=== PATIENT | female | born 1950 | race Caucasian/White ===

== ENCOUNTER 2020-05-27 10:55 | Inpatient (IN) | payer MEDICARE, SELFPAY ==
[2020-05-27] VITALS (23 sets, daily range): BP systolic 104–185; BP diastolic 57–119; PULSE 70–98; RESP 2–24; TEMP 36.1–37; O2SAT 93–100; BMI 16.7; BMI 14.8
--- NOTE | 2020-05-27 | DI.RAD.S_ITS ---
PROCEDURE: XR HIP W PEL IF DONE RT 2V INDICATIONS: IM HIP NAILING RIGHT TECHNIQUE: 3 intraoperative fluoroscopic views of the hip were acquired. COMPARISON: [facility], , XR HIP W PEL IF DONE RT 2V, 05/27/2020, 11:39. FINDINGS: Intraoperative fluoroscopic images of right hip shows internal fixation of previously noted right proximal femoral intertrochanteric fracture with intramedullary lui and fixation screws in place. IMPRESSION: Fluoro guidance was provided intraoperatively for internal fixation of right proximal femur. Dictated by: Mikhail Pagan M.D. on 05/27/2020 at 17:46 Approved by: Mikhail Pagan M.D. on 05/27/2020 at 17:46
--- NOTE | 2020-05-27 10:56 | DI.RAD.S_ITS ---
PROCEDURE: XR HIP W PEL IF DONE RT 2V INDICATIONS: pain after fall TECHNIQUE: AP pelvis with lateral view(s) of the right hip(s). COMPARISON: None. FINDINGS: Bones: Cortical disruption and radiolucency is seen involving intertrochanteric region of right proximal femur suggestive of a minimally displaced intertrochanteric fracture. No other fracture or dislocation. No evidence of avascular necrosis of femoral head. Pelvic ring appears intact. No suspicious bony lesions. Soft tissues: The visualized bowel gas pattern is normal. No suspicious soft tissue calcifications. IMPRESSION: Finding is suggestive of a minimally displaced right intertrochanteric fracture. Dictated by: Mikhail Pagan M.D. on 05/27/2020 at 11:06 Approved by: Mikhail Pagan M.D. on 05/27/2020 at 11:07
--- NOTE | 2020-05-27 11:13 | ED_ITS ---
HPI - General Adult General Chief complaint: Fall Stated complaint: GLF, R Hip Pain Time Seen by Provider: 05/27/20 10:55 Source: patient and EMS Mode of arrival: EMS Limitations: no limitations History of Present Illness HPI narrative: Patient is a 69-year-old female who reports no other medical problems here for evaluation of a fall last evening and right hip pain. Patient states she was in her house painting in her kitchen. She states she came down off of the ladder had walked into her living room when she states that she fell landing on her right side. She thought that she potentially lost consciousness for a very short period of time. She does not think that she hit her head. She is not on blood thinners. Has had pain in her right hip since then. States she could not get up off the floor and laid on the floor all evening. She reports no other injuries from the event. She did receive a total of 100 mcg of fentanyl by EMS prior to arrival. Prior to the fall she denied any prodromal symptoms. Review of Systems Constitutional Constitutional: Denies fever(s) and Denies headache(s) ENT Ears, Nose, Mouth, and Throat: Denies vertigo, Denies dizziness and Denies headache(s) Cardiovascular Cardiovascular: Denies chest pain, Reports syncope, Denies lightheadedness, Denies dyspnea and Denies orthopnea Respiratory Respiratory: Denies cough and Denies dyspnea Gastrointestinal Gastrointestinal: Denies abdominal pain, Denies nausea and Denies vomiting Genitourinary Genitourinary: Denies dysuria Genitourinary: Denies dysuria Musculoskeletal Comments: Right hip pain Integumentary/Breasts Skin/Breast: Denies lesions and Denies rash Neurologic Neurologic: Denies behavioral changes, Denies confusion, Denies vertigo, Denies dizziness, Reports syncope and Denies headache(s) Psychiatric Psychiatric: Denies behavioral changes and Denies confusion Hematologic/Lymphatic Hematologic/Lymphatic: Denies easy bleeding and Denies easy bruising Allergic/Immunologic Allergic/Immunologic: Denies urticaria Patient History Medical History Healthy adult (Acute) Social History lives independently: Yes Smoking Status: Current every day smoker Exam Initial Vital Signs Initial Vital Signs: Vital Signs Temperature 98 F 05/27/20 11:10 Pulse Rate 83 05/27/20 11:10 Respiratory Rate 18 05/27/20 11:10 Blood Pressure 156/70 H 05/27/20 11:10 Pulse Oximetry 97 05/27/20 11:10 Const General: cooperative and comfortable Limitations: mental status not altered HENMT Head: normal to inspection and normocephalic Chest Chest: No crepitus and No tenderness Resp Effort & Inspection: normal respiratory effort Auscultation: clear to auscultation bilaterally Cardio Rate: regular rate Rhythm: regular rhythm Pulses: dorsalis pedis present bilaterally GI Inspection: non-distended Palpation: soft Skin Lesions: no lesions Rashes: no rashes Neuro General: patient alert and patient oriented x3 Cognition: normal cognition Speech: speech normal Extrem General: normal to inspection and capillary refill normal Other: Tenderness to palpation of the right hemipelvis. Is able to flex and extend the ankle and wiggle her toes. Psych Appearance: grossly normal and well kempt Scores GCS Gaby coma scale eye opening: Spontaneous [place] coma scale verbal response: Orientated [place] coma scale motor response: Obey commands [place] coma scale total score: 15 Course Orders Ordered: ED Orders 05/27/20 10:56 XR hip w pel if done RT 2V Routine 05/27/20 11:07 EKG-12 Lead Stat 05/27/20 11:27 Basic Metabolic Panel Stat Complete Blood Count AUTO DIFF Stat Creatine Kinase Stat 05/27/20 11:30 COVID19 Stat 05/27/20 12:40 Consult to Orthopedic Surgery Stat Sodium Chloride (Normal Saline 0.9%) 1,000 mls @ 125 mls/hr IV CONT MOHSEN Last Admin: 05/27/20 12:43 Dose: 125 mls/hr Documented by: SCANAPO Vital Signs Vital signs: Vital Signs - 8 hr 05/27/20 11:10 05/27/20 12:00 05/27/20 12:30 Temperature 98 F Pulse Rate 83 73 72 Respiratory Rate 18 17 15 Blood Pressure 156/70 H 119/59 L 104/57 L Pulse Oximetry 97 98 98 05/27/20 13:00 Temperature Pulse Rate 74 Respiratory Rate 24 Blood Pressure 135/60 Pulse Oximetry 98 Medical Decision Making Lab Data Lab results reviewed: Yes I reviewed the patient's lab results. Result diagrams: 05/27/20 11:27 05/27/20 11:27 Labs: Lab Results 05/27/20 05/27/20 05/27/20 Range/Units 11:27 11:27 11:27 WBC 12.9 H (4.5-11.0) X10^3/uL RBC 3.52 L (4.0-5.2) X10^6/uL Hgb 12.4 (12.0-16.0) g/dL Hct 37.4 (36-46) % MCV 106.2 H (80-100) fL MCH 35.2 H (26-34) PG MCHC 33.2 (30-36) % RDW 14.5 (11.6-14.8) % Plt Count 213 (150-400) X10^3/uL Neut % (Auto) 85.5 H (50-75) % Lymph % (Auto) 10.0 L (25-40) % [place] % (Auto) 4.2 (3-14) % Eos % (Auto) 0.1 L (2-4) % Baso % (Auto) 0.2 (0-2) % Neut # (Auto) 81652 H (9947-7829) /uL Lymph # (Auto) 1300 (7655-9984) /uL [place] # (Auto) 500 (0-900) /uL Eos # (Auto) 0 (0-450) /uL Baso # (Auto) 0 (0-100) /uL Sodium Cancelled 141 Potassium Cancelled 4.1 Chloride Cancelled 111 H Carbon Dioxide Cancelled 26 BUN Cancelled 7 Creatinine Cancelled 0.42 L Estimated GFR Cancelled > 60.0 BUN/Creatinine Ratio Cancelled 16.7 Glucose Cancelled 157 H Calcium Cancelled 8.4 Total Creatine Kinase Cancelled 34 COVID-19 PCR (Negative) 05/27/20 Range/Units 11:30 WBC (4.5-11.0) X10^3/uL RBC (4.0-5.2) X10^6/uL Hgb (12.0-16.0) g/dL Hct (36-46) % MCV (80-100) fL MCH (26-34) PG MCHC (30-36) % RDW (11.6-14.8) % Plt Count (150-400) X10^3/uL Neut % (Auto) (50-75) % Lymph % (Auto) (25-40) % [place] % (Auto) (3-14) % Eos % (Auto) (2-4) % Baso % (Auto) (0-2) % Neut # (Auto) (1007-2714) /uL Lymph # (Auto) (2288-9723) /uL [place] # (Auto) (0-900) /uL Eos # (Auto) (0-450) /uL Baso # (Auto) (0-100) /uL Sodium Potassium Chloride Carbon Dioxide BUN Creatinine Estimated GFR BUN/Creatinine Ratio Glucose Calcium Total Creatine Kinase COVID-19 PCR Negative (Negative) Imaging Data Extremity x-ray #1: Radiologist's Impression: [address] [address] XRay Report Signed Patient: Leonor Mora#: [id number] : 2Acct:[id number] Age/Sex: 69 / FDate of Service: 05/27/20 Loc: ED Accession Number: [id number] Procedure: XR hip w pel if done RT 2V Ordering Provider: Prudencio Whitfield D.O. PROCEDURE: XR HIP W PEL IF DONE RT 2V INDICATIONS: pain after fall TECHNIQUE: AP pelvis with lateral view(s) of the right hip(s). COMPARISON: None. FINDINGS: Bones: Cortical disruption and radiolucency is seen involving intertrochanteric region of right proximal femur suggestive of a minimally displaced intertrochanteric fracture. No other fracture or dislocation. No evidence of avascular necrosis of femoral head. Pelvic ring appears intact. No suspicious bony lesions. Soft tissues: The visualized bowel gas pattern is normal. No suspicious soft tissue calcifications. IMPRESSION: Finding is suggestive of a minimally displaced right intertrochanteric fracture. Dictated by: Mikhail Pagan M.D. on 05/27/2020 at 11:06 Approved by: Mikhail Pagan M.D. on 05/27/2020 at 11:07 ECG Data Attestation: I personally reviewed and interpreted this ECG as follows: Prior ECG tracings: not available for review Interpretation: Sinus rhythm Ventricular rate is 79 Left axis deviation Incomplete left bundle branch block Nonspecific ST T wave changes MDM Narrative Medical decision making narrative: Patient did lay on the floor all evening however her labs today are not consistent with rhabdo. Patient is alert oriented x3. GCS of 15. X-ray shows right-sided intertrochanteric hip fracture. Did discuss the case with Dr. hinojosa with orthopedics who asked the patient be a dmitted to the Medicine Service. I did discuss the case with Dr. Bates who will admit for further evaluation treatment. I did discuss the injuries with the patient in the need for admission and she expressed understanding and agreement. Discharge Plan Departure Patient Disposition: Admitted As Inpatient Clinical Impression: Syncope Closed fracture of neck of right femur Qualifiers: Encounter type: initial encounter Qualified Code(s): S72.001A - Fracture of unspecified part of neck of right femur, initial encounter for closed fracture
[2020-05-27 11:38] LABS: Add Manual Diff / Slide Review NO; Basophils Absolute Auto 0 /uL (0-100); Basophils Percent Auto 0.2 % (0-2); Eosinophils Absolute Auto 0 /uL (0-450); Eosinophils Percent Auto 0.1 % (2-4); Hematocrit 37.4 % (36-46); Hemoglobin 12.4 g/dL (12.0-16.0); Lymphocytes Absolute Auto 1300 /uL (1100-4500); Mean Corpuscular HGB Conc 33.2 % (30-36); Mean Corpuscular Hemoglobin 35.2 PG (26-34); Mean Corpuscular Volume 106.2 fL (80-100); Monocytes Absolute Auto 500 /uL (0-900); Monocytes Percent Auto 4.2 % (3-14); Neutrophils Absolute Auto 11000 /uL (1500-7000); Neutrophils Percent Auto 85.5 % (50-75); Platelet Count 213 X10^3/uL (150-400); Red Blood Cell Count 3.52 X10^6/uL (4.0-5.2); Red Cell Distribution Width 14.5 % (11.6-14.8); White Blood Cell Count 12.9 X10^3/uL (4.5-11.0)
[2020-05-27 12:03] LABS: COVID19 -Nasal RAPID Negative (Negative)
[2020-05-27] MEDS: SODIUM CHLORIDE 0.9% 1,000 ML 125 ML IV (12:43)
[2020-05-27 12:46] LABS: BUN Creatinine Ratio 16.7 (6-22); Blood Urea Nitrogen 7 mg/dL (7-17); Calcium 8.4 mg/dL (8.4-10.2); Carbon Dioxide 26 mmol/L (22-32); Chloride 111 mmol/L (98-107); Creatine Kinase 34 U/L (30-135); Estimated Glomerular Filt Rate > 60.0 mL/min (>60); Glucose 157 mg/dL (80-110); HEMOLYSIS < 15 (0-50); Potassium 4.1 mmol/L (3.4-5.1); Sodium 141 mmol/L (137-145)
[2020-05-27] MEDS: MORPHINE 4 MG/ML INJ IV (14:46)
[2020-05-27] MEDS: fentaNYL 100 MCG/2 ML INJ 50 MCG IV ×2 (16:24→16:40)
--- NOTE | 2020-05-27 16:25 | PM.HP.1 ---
History of Present Illness History of Present Illness Date Patient Seen: 05/27/20 Time Patient Seen: 16:25 Date of Onset of Symptoms: 05/26/20 Chief complaint: GLF, R Hip Pain Narrative: Patient is a 69-year-old female who reports no other medical problems who presented to the ED with right hip pain. Patient states she was in her house painting in her kitchen. She states she came down off of the ladder had walked into her living room when she states that she fell landing on her right side, she does not recall the event. She thought that she potentially lost consciousness for a very short period of time. She does not think that she hit her head. She is not on blood thinners. Has had pain in her right hip since then. States she could not get up off the floor and laid on the floor all evening. She was able to call out and someone eventually called EMS. She was down for approximately 12 hours. Patient History Medical History Healthy adult (Acute) Family & Social History Social History: lives independently Yes Safety & Behavioral: Feels Safe in Current Yes Environment Been Physically Hurt or No Threatened By a Person Tobacco & Substance use: Smoking Status Current every day smoker alcohol intake frequency 0-2 drinks per day Substance Use Type does not use Meds Home Medications and Allergies Allergies Allergy/AdvReac Type Severity Reaction Status Date / Time No Known Drug Allergies Allergy Verified 05/27/20 16:16 Exam Vital Signs (past 8 hours): - 05/27/20 11:10 05/27/20 12:00 05/27/20 12:30 Temperature 98 F Pulse Rate 83 73 72 Respiratory Rate 18 17 15 Blood Pressure 156/70 H 119/59 L 104/57 L Pulse Oximetry 97 98 98 05/27/20 13:00 05/27/20 16:15 05/27/20 16:16 Temperature 98 F 97.7 F Pulse Rate 74 82 70 Respiratory Rate 24 16 16 Blood Pressure 135/60 151/80 H 146/72 H Pulse Oximetry 98 99 100 Oxygen Delivery Method Room Air Narrative Exam Narrative: NV intact to RLE, No skin breaks Objective Imaging [place] x-ray: My impression: Right intertroachnteric femur fracture Radiologist's impression: Finding is suggestive of a minimally displaced right intertrochanteric fracture. Labs Result Diagrams: 05/27/20 11:27 05/27/20 11:27 Labs: Laboratory Results - last 24 hr 05/27/20 05/27/20 05/27/20 11:27 11:27 11:27 WBC 12.9 H RBC 3.52 L Hgb 12.4 Hct 37.4 MCV 106.2 H MCH 35.2 H MCHC 33.2 RDW 14.5 Plt Count 213 Neut % (Auto) 85.5 H Lymph % (Auto) 10.0 L [place] % (Auto) 4.2 Eos % (Auto) 0.1 L Baso % (Auto) 0.2 Neut # (Auto) 86923 H Lymph # (Auto) 1300 [place] # (Auto) 500 Eos # (Auto) 0 Baso # (Auto) 0 Sodium Cancelled 141 Potassium Cancelled 4.1 Chloride Cancelled 111 H Carbon Dioxide Cancelled 26 BUN Cancelled 7 Creatinine Cancelled 0.42 L Estimated GFR Cancelled > 60.0 BUN/Creatinine Ratio Cancelled 16.7 Glucose Cancelled 157 H Calcium Cancelled 8.4 Total Creatine Kinase Cancelled 34 COVID-19 PCR 05/27/20 11:30 WBC RBC Hgb Hct MCV MCH MCHC RDW Plt Count Neut % (Auto) Lymph % (Auto) [place] % (Auto) Eos % (Auto) Baso % (Auto) Neut # (Auto) Lymph # (Auto) [place] # (Auto) Eos # (Auto) Baso # (Auto) Sodium Potassium Chloride Carbon Dioxide BUN Creatinine Estimated GFR BUN/Creatinine Ratio Glucose Calcium Total Creatine Kinase COVID-19 PCR Negative Assessment & Plan Assessment & Plan narrative: Patient is a 69-year-old female who was painting in her kitchen yesterday evening when she thinks she got off the ladder and had a syncopal episode. She thinks that she briefly lost consciousness. She woke short time after with excruciating right hip pain she is unable to ambulate. She is unable to reach a phone and slipped on the floor that night this morning she is able to cough to a neighbor who then called EMS she was down for approximately 12 hours. I had a long discussion with the patient regarding her symptoms as well as her x-ray findings which demonstrate a right intertrochanteric femur fracture. I discussed surgical options. Risks of surgery include the risk of nonunion, malunion, need for future surgery, continued pain, DVT, PE, etc.. Patient demonstrates understanding the risks and benefits and wishes to proceed. Plan will be for a right cephalomedullary nail for a right intertrochanteric femur fracture. - OCTOR for right CMN - NPO - NWB RLE Time Spent With Patient Time with patient: 15-24 minutes
[2020-05-27] MEDS: LACTATED RINGERS 1,000 ML 42 ML IV ×2 (16:33→17:34)
--- NOTE | 2020-05-27 16:33 | SUR.HOLD ---
Placed patient on continuous pulse oximetry due to administration of Fentanyl while in holding area.
--- NOTE | 2020-05-27 16:35 | PM.PREOP ---
Pre-operative Note COVID-19 COVID-19 status: Negative Result date/Date tested (Pos, Neg/Pending): 05/27/20 Interval Note History & Physical reviewed/Exam performed by Physician: Yes Changes to H&P: No H&P completed within 30 days and has changed as indicated here:: Plan for right CMN for right IT femur fracture
[2020-05-27] MEDS: CEFAZOLIN 2 GM/100 ML FROZ.PIGGY IV (16:48)
--- NOTE | 2020-05-27 17:04 | SUR.OPER ---
Head on pillow. Supine on fracture table with operative leg secured in traction. Other leg secured in padded stirrup. Arms across chest, secured with sheet.
--- NOTE | 2020-05-27 18:05 | P.OP_ITS ---
Operative Date/Time/Diagnoses Date of procedure: 05/27/20 Time of procedure: 18:05 Pre-op diagnosis: right intertrocahnteric femur fracture Post-op diagnosis: same Procedure & Clinicians Procedure: Right short CMN for IT femur fracture Same procedure as scheduled: Yes Indications: Right intertrochanteric femur fracture Surgeon: Stanley Charlton License Inspector: Brenna Bajwa Anesthesia Type: General Operative Notes Findings: Displaced right intertrochanteric femur fracture, simple pattern Closure Type: primary Specimen(s): none sent Prosthetic devices, grafts, tissues, transplants, or devices: Stevens and nephew intertan 125? 11.5 mm x 18 cm 100 mm head screw 95 mm compression screw 32.5mm distal interlocking bolt Estimated Blood Loss (mL): 100 Procedure in detail: Patient was met in the preoperative holding area. I had a long discussion with the patient regarding her fracture pattern as well as possible treatment options. Based on her fracture pattern I think she would be most amenable to a cephalomedullary nail for surgical stabilization of this right intertrochanteric femur fracture. I I discussed with her the risks and benefits of surgery including the risk of infection, malunion, nonunion, continued pain, need for future surgeries, DVT, PE, etc.. Patient demonstrates understanding of the risks and benefits surgery and wishes to proceed with a right cephalomedullary nail for right intertrochanteric femur fracture. Surgical site was marked by Patient was brought back in the operating room where she was induced under general anesthesia and then transferred onto the [place] table. The right foot was padded and placed on [place] table boot and the left leg was placed in a well padded well leg mcduffie. Before prepping and draping fluoroscopy was brought in for reduction of the intertrochanteric fracture. A light amount of traction and neutral rotation reduced the fracture. The right hip was then prepped and draped in normal sterile fashion with a shower curtain drape. A 3 cm long incision in line with the femur proximal to the greater trochanter was made in the skin using 10. Blade Burkett scissors were then used to split the fascia and a threaded tip wire was then placed at the tip of the greater trochanter fluoroscopic guidance was used on the AP and tangential view to guide placement of this wire this was then malleted into place and the opening Reamer was then placed over this wire and reamed to the level of the lesser trochanter. A 11.5 mm wide short inter schwartz nail was selected the Reamer and wire were then removed and the inter schwartz nail was placed. Fluoroscopic guidance was used to determine the depth of the nail placement. Tangential views were then used for placement of the threaded tipped guide pin into the femoral head making sure not to perforate the cortex. This was measured at 200 mm of depth. We then drilled for the compression screw to 95 mm of depth and then drilled for the head screw 200 mm of depth. The head screw was then placed followed by the 95 mm compress ion screw. We then placed the distal interlocking bolt through the jig by drilling the cortex and measuring to a depth of 30 mm. A 32.5 mm interlocking bolt was selected and placed. The jig was then removed and final films were obtained showing good maintenance of reduction as well as appropriate hardware placement without any perforation of the articular surface. The wounds were then thorough ly irrigated with normal saline and the deep fascia was closed with an number 0 Vicryl interrupted fashion followed by 2 Vicryl in the subcutaneous layer followed by sarah on skin and sterile dressings. Complications: none Post-operative Condition: stable Disposition: PACU Plan for aftercare: Weightbearing as tolerated right lower extremity, 24 hours of postop antibiotics, aspirin 81 mg b.i.d. for 6 weeks for DVT prophylaxis.
[2020-05-27] MEDS: fentaNYL 100 MCG/2 ML INJ IV ×2 (18:28→18:42)
--- NOTE | 2020-05-27 19:08 | SUR.PHASEI ---
REPORT CALLED TO AIDAN OLIVAS ON ACUTE CARE FLOOR. PT IN STABLE CONDITION, VSS. PT RESTING WITH EYES CLOSED, EASILY AROUSABLE TO VOICE WHEN SPOKE TO. PT APPEARS COMFORTABLE AT THIS TIME. PT WILL BE TRANSFERRED TO ACUTE CARE FLOOR.
--- NOTE | 2020-05-27 19:27 | SUR.PHASEI ---
PT TRANSFERRED TO ACUTE CARE FLOOR IN STABLE CONDITION, VSS. BEDSIDE REPORT GIVEN TO AIDAN OLIVAS UPON ARRIVAL TO ROOM. TRANSFERRED CARE OF PT TO AIDAN OLIVAS.
[2020-05-27] MEDS: HYDROMORPHONE 0.5 MG INJ 0.2 MG IV (20:21)
[2020-05-27] MEDS: LACTATED RINGERS 1,000 ML 75 ML IV (20:28)
[2020-05-27 20:58] LABS: Hematocrit 34.3 % (36-46); Hemoglobin 11.5 g/dL (12.0-16.0)
[2020-05-27] MEDS: ASPIRIN EC 81 MG TABLET PO (21:09)
[2020-05-27] MEDS: DOCUSATE 100 MG CAPSULE PO (21:10)
[2020-05-27] MEDS: ACETAMINOPHEN 325 MG TABLET 975 MG PO (21:10)
[2020-05-27] MEDS: OXYCODONE IR 5 MG TABLET PO (21:10)
[2020-05-27] MEDS: HYDROMORPHONE 0.5 MG INJ IV (21:34)
--- NOTE | 2020-05-27 21:50 | DI.RAD.S_ITS ---
PROCEDURE: XR CERVICAL SPINE 2V OR 3V INDICATIONS: Fall from ladder, neck pain TECHNIQUE: 3 view(s) of the cervical spine were acquired. COMPARISON: None. FINDINGS: Bones: No fractures or dislocations to the C7 level. The lateral masses of C1 are poorly visualized. Mild reversal normal cervical spine curvature which could be due to soft tissue injury or positioning. Soft tissues: No prevertebral soft tissue swelling. IMPRESSION: Suboptimal cervical spine x-ray series with nonvisualization of cervical thoracic junction and not noticed diagnostic visualization of the lateral masses C1 and C2. No gross fracture identified in the limited examination. Recommend CT or MRI scan of the cervical spine if clinically indicated. Dictated by: Darlin Connors MD, PhD on 05/28/2020 at 8:58 Approved by: Darlin Connors MD, PhD on 05/28/2020 at 9:01
[2020-05-27] MEDS: NICOTINE 21 MG PATCH TOP (22:42)
[2020-05-28] VITALS (8 sets, daily range): BP systolic 125–151; BP diastolic 58–70; PULSE 85–98; RESP 14–18; TEMP 36.3–37.3; O2SAT 93–99
--- NOTE | 2020-05-28 | DI.RAD.S_ITS ---
PROCEDURE: XR PELVIS 1-2V INDICATIONS: post-op TECHNIQUE: Single frontal view of the pelvis acquired. COMPARISON: [facility], CR, XR HIP W PEL IF DONE RT 2V, 05/27/2020, 11:39. [facility], CR, XR HIP W PEL IF DONE RT 2V, 05/27/2020, 17:39. FINDINGS: Bones: No previously on identified fractures or dislocations. A short medullary lui within the proximal right femur is present fixed by single transverse screw distally and there are 2 separate diagonal dynamic hip screws crossing the proximal medullary lui establishing normal alignment crossing the intratrochanteric fracture previously present. No suspicious bony lesions. Soft tissues: Visualized bowel gas pattern is normal. No suspicious soft tissue calcifications. IMPRESSION: Normal alignment established, after inter trochanteric fracture fixation on the right. Dictated by: Wayne Arnold M.D. on 05/28/2020 at 16:28 Approved by: Wayne Arnold M.D. on 05/28/2020 at 16:29
[2020-05-28] MEDS: CEFAZOLIN 2 GM/100 ML FROZ.PIGGY IV ×2 (00:26→07:42)
[2020-05-28] MEDS: OXYCODONE IR 5 MG TABLET PO ×2 (00:34→05:55)
--- NOTE | 2020-05-28 03:22 | P.HP_ITS ---
History of Present Illness History of Present Illness Date Patient Seen: 05/27/20 Time Patient Seen: 20:35 Chief complaint: GLF, R Hip Pain Narrative: Ms. Hailey Mora is a 69-year-old female who reports no significant medical history who presents to the ER following a fall from the ladder and right hip pain. The patient states she was getting off the ladder while she was painting her kitchen and fell to the floor landing on her right side. The patient has no recollection of the incident. She denies antecedent complaints of dizziness chest pain shortness of breath, numbness, tingling or weakness. The patient states she could not get up and was calling for help. She she reports laying on the floor for 12 hours being unable to move. The [facility] ent reports that she has not sought medical care for over 20 years. She denies recent cold or flu symptoms, has had no fevers or chills, nasal congestion or sore throat. She has had no known COVID-19 exposures. She denies complaints of chest pain or palpitations, shortness of breath cough or wheezing. She has had no abdominal pain common epigastric tenderness, nausea or vomiting. She endorses urinary urgency but denies frequency hematuria or burning. She states she has had no diarrhea or constipation. Since her fall she endorses midline low neck pain, profound right hip pain and describes right lower quadrant abdominal pain. Upon arrival to the ER the patient has a temperature of 98?, heart rate of 83, blood pressure 156/70, respirations 18 saturating 97% on room air. X-rays taken the right hip which finds a minimally displaced intertrochanteric fracture. Twelve lead EKG is obtained which finds sinus rhythm with an incomplete right bundle branch block and minimal left ventricular hypertrophy with ST elevation in V1 through V3. On laboratory analysis he has elevated white count at 12.9, hemoglobin of 12.4, hematocrit 37.4 and platelets of 213. Her electrolytes are within normal limits and she has a BUN 7 and creatinine 0.42. Her nonfasting glucose is 157. Total CK is 34. COVID-[address] Stanley Charlton is contacted through the emergency department and agrees to consult. He has evaluated the patient and will be taking the patient directives surgery. The patient is admitted to the medical service for further evaluation and monitoring. Patient History Medical History Current every day smoker (Acute) Healthy adult (Acute) Surgical History (Updated 05/28/20 @ 03:32 by BORIS Mcintosh) History of bilateral breast implants (Acute) History of cholecystectomy (Acute) History of hysterectomy (Acute) Family & Social History Family History (Updated 05/28/20 @ 03:34 by BORIS Mcintosh) Father Congestive heart failure Mother No significant medical problems Brother Heart disease Diabetes mellitus Sister Cancer Social History: household members none Prior Living Arrangements House lives independently Yes Safety & Behavioral: Feels Safe in Current Yes Environment Been Physically Hurt or No Threatened By a Person Suicidal Ideation Description None Suicide Plan Description No Plan Tobacco & Substance use: Tobacco type cigarettes Smoking Status Current every day smoker Smoking packs per day 1.5 alcohol intake current alcohol intake frequency 3 or more drinks per day Substance Use Type does not use Meds Home Medications and Allergies Allergies Allergy/AdvReac Type Severity Reaction Status Date / Time No Known Drug Allergies Allergy Verified 05/27/20 16:16 Review of Systems Review of Systems ROS: Yes All systems reviewed with the patient and are negative except as otherwise documented Exam Vital Signs (past 8 hours): - 05/27/20 19:50 05/27/20 20:20 05/27/20 21:11 Temperature 97.7 F 98.6 F Pulse Rate 86 81 91 H Respiratory Rate 15 15 18 Blood Pressure 138/64 129/59 L Pulse Oximetry 96 96 96 05/27/20 21:20 05/28/20 00:30 Temperature 98.6 F 98.8 F Pulse Rate 96 H 98 H Respiratory Rate 15 14 Blood Pressure 136/67 128/61 Pulse Oximetry 95 98 Oxygen Delivery Method Room Air Oxygen Flow Rate 0 Narrative Exam Narrative: GENERAL APPEARANCE: well developed, frail appearing malnourished oddly female lying semi recumbent in bed. HEENT: Atraumatic, PERRLA, conjunctiva clear sclera anicteric,, EOMs intact without nystagmus, no rhinorrhea, mucous membranes are moist and pink without lesions or exudate. NECK/THYROID: Neck pain on palpation low cervical spine midline, decreased ROM, no carotid bruit, no thyromegaly, trachea midline. LYMPH NODES: no cervical or supraclavicular lymphadenopathy. SKIN: Pallor, warm and dry, no visible lesions, rashes, ulcerations or petechiae. HEART: regular rate and rhythm, S1-S2, no murmur, no rubs or gallops, brisk capillary refill, no edema LUNGS: Diminished breath sounds bibasilar, no coarseness crackles or wheezing, no cough present CHEST: Symmetrical movement, no accessory muscle use, good tidal volume no pain to AP and lateral compression. ABDOMEN: Soft, no distention, pain on palpation right lower abdominal wall and pubic synthesis, no guarding or peritoneal signs, no organomegaly, active bowel tones. BACK: Nontender to palpation EXTREMITIES: Pain with any movement of the right lower extremity, distal CMS intact, BUE strength is 5/5 and symmetrical without deformity or joint effusions. NEUROLOGIC: AAO x 3, no focal neurologic deficits, cranial nerves II-XII grossly intact, sensation intact to light touch, hearing grossly normal to speech. PSYCH: Patient with flat affect, short response to questions, cooperative Objective Labs Result Diagrams: 05/27/20 20:45 05/27/20 11:27 Labs: Laboratory Results - last 24 hr 05/27/20 05/27/20 05/27/20 11:27 11:27 11:27 WBC 12.9 H RBC 3.52 L Hgb 12.4 Hct 37.4 MCV 106.2 H MCH 35.2 H MCHC 33.2 RDW 14.5 Plt Count 213 Neut % (Auto) 85.5 H Lymph % (Auto) 10.0 L [place] % (Auto) 4.2 Eos % (Auto) 0.1 L Baso % (Auto) 0.2 Neut # (Auto) 01647 H Lymph # (Auto) 1300 [place] # (Auto) 500 Eos # (Auto) 0 Baso # (Auto) 0 Sodium Cancelled 141 Potassium Cancelled 4.1 Chloride Cancelled 111 H Carbon Dioxide Cancelled 26 BUN Cancelled 7 Creatinine Cancelled 0.42 L Estimated GFR Cancelled > 60.0 BUN/Creatinine Ratio Cancelled 16.7 Glucose Cancelled 157 H Calcium Cancelled 8.4 Total Creatine Kinase Cancelled 34 COVID-19 PCR 05/27/20 05/27/20 11:30 20:45 WBC RBC Hgb 11.5 L Hct 34.3 L MCV MCH MCHC RDW Plt Count Neut % (Auto) Lymph % (Auto) [place] % (Auto) Eos % (Auto) Baso % (Auto) Neut # (Auto) Lymph # (Auto) [place] # (Auto) Eos # (Auto) Baso # (Auto) Sodium Potassium Chloride Carbon Dioxide BUN Creatinine Estimated GFR BUN/Creatinine Ratio Glucose Calcium Total Creatine Kinase COVID-19 PCR Negative Assessment & Plan Assessment & Plan narrative: This is a 69-year-old female who appears older than her stated age who has no significant medical history having had no medical care for 20 years. She was painting in her kitchen and descending ladder when she fell to the floor sustaining a syncopal episode and complaining of neck pain and hip pain. 1. Ground level fall, loss of consciousness unclear if before or is a result of the fall, acute, active -the patient sustained a fall from an unknown height sustaining a loss of consciousness. She also had immediate right hip pain and was immobile on the floor for 12 hours. -the patient complains of midline low cervical spine pain possibly not notice due to distracting injury. Will obtain C-spine x-rays. -the patient does not recall events of fall however she denies any antecedent symptoms. -patient's 12 lead shows a sinus rhythm with an incomplete left bundle branch block and minimal left ventricular hypertrophy with ST abnormalities in V1 through V3. -will treat as a syncopal episode and obtain an echocardiogram, lipid panel, TSH and hemoglobin A1c 2. Right closed intertrochanteric femur fracture, acute, present on admission, active -Patient sustained a fall from ladder onto her right hip sustaining intertrochanteric fracture. No prior diagnosis of osteoporosis or mention on imaging. -Dr. Charlton has agreed to consult and is taking the patient directly to the OR. -postoperative care per the orthopedic team. 3. Tobacco Abuse, chronic -patient reports smoking for over 50 years and is currently smoking a pack and half a day since the onset of COVID 19 and isolation. -counseled patient on smoking cessation, patient is disinterested in quitting -ordered Nicoderm patch. 4. Severe protein calorie malnutrition, chronic -patient is frail appearing with decreased muscle mass and has a BMI of 14.9. -patient will likely have poor healing of tissues due to nutritional status, delayed rehab due to loss of muscle mass -requested dietitian to consult. VTE prophylaxis: Per the surgical team aspirin 81 mg twice daily IV fluid: Lactated Ringer's at 75 cc/hour. Diet: Regular diet Code status: Patient states her wish to be DNR DNI, she declines to designate surrogate decision maker however Kristina Robles is listed is her emergency contact. The patient is admitted to the hospital to the severity of her injuries requiring surgical intervention and further evaluation. The patient is admitted as an inpatient with expected length of stay to be greater than 2 midnights. COVID-19 COVID-19 status: Negative Result date/Date tested (Pos, Neg/Pending): 05/27/20 Scores GCS Vesper coma scale eye opening: Spontaneous Vesper coma scale verbal response: Orientated Gaby coma scale motor response: Obey commands Gaby coma scale total score: 15
[2020-05-28 05:55] LABS: Add Manual Diff / Slide Review NO; Basophils Absolute Auto 0 /uL (0-100); Basophils Percent Auto 0.1 % (0-2); Eosinophils Absolute Auto 100 /uL (0-450); Eosinophils Percent Auto 0.9 % (2-4); Hematocrit 33.3 % (36-46); Hemoglobin 11.1 g/dL (12.0-16.0); Lymphocytes Absolute Auto 2200 /uL (1100-4500); Lymphocytes Percent Auto 21.2 % (25-40); Mean Corpuscular HGB Conc 33.5 % (30-36); Mean Corpuscular Volume 107.5 fL (80-100); Monocytes Absolute Auto 900 /uL (0-900); Monocytes Percent Auto 8.8 % (3-14); Neutrophils Absolute Auto 7100 /uL (1500-7000); Platelet Count 183 X10^3/uL (150-400); Red Blood Cell Count 3.09 X10^6/uL (4.0-5.2); White Blood Cell Count 10.2 X10^3/uL (4.5-11.0)
[2020-05-28 06:10] LABS: Blood Urea Nitrogen 9 mg/dL (7-17); Calcium 8.2 mg/dL (8.4-10.2); Carbon Dioxide 31 mmol/L (22-32); Chloride 105 mmol/L (98-107); Cholesterol 97 mg/dL (140-199); Estimated Glomerular Filt Rate > 60.0 mL/min (>60); Glucose 126 mg/dL (80-110); HDL Cholesterol 56 mg/dL (40-60); HEMOLYSIS 17 (0-50); LDL Cholesterol Calculated 31 mg/dL (<100); Potassium 4.4 mmol/L (3.4-5.1); Sodium 135 mmol/L (137-145); Triglycerides 52 mg/dL (35-150)
[2020-05-28] MEDS: HYDROMORPHONE 0.5 MG INJ 0.2 MG IV (07:40)
[2020-05-28] MEDS: NICOTINE 21 MG PATCH TOP (07:43)
[2020-05-28] MEDS: ASPIRIN EC 81 MG TABLET PO ×2 (07:48→20:59)
[2020-05-28] MEDS: DOCUSATE 100 MG CAPSULE PO ×2 (07:48→20:58)
[2020-05-28] MEDS: ACETAMINOPHEN 325 MG TABLET 975 MG PO ×3 (07:48→20:58)
--- NOTE | 2020-05-28 07:53 | PM.PN.1 ---
Subjective Subjective Date Patient Seen: 05/28/20 Time Patient Seen: 07:53 Interval history: Patient is POD#1 s/p Right short CMN for IT femur fracture with Dr. Charlton. Poor pain control overnight with 5mg oxycodone. She has not mobilized yet. Higgins catheter in place. No complaints other than pain and muscle spasm in the thigh. Exam Vital Signs (past 8 hours): - 05/28/20 00:30 05/28/20 05:20 05/28/20 07:22 Temperature 98.8 F 99.1 F 97.4 F L Pulse Rate 98 H 87 89 Respiratory Rate 14 16 16 Blood Pressure 128/61 136/70 151/65 H Pulse Oximetry 98 93 99 Oxygen Delivery Method Room Air Oxygen Flow Rate 0 Narrative Exam Narrative: 69 year old female resting in bed. Alert and oriented in moderate discomfort. Dressings in place over lateral thigh is CDI. Patient able to flex/extend the ankle. Refusing to attempt straight leg raise due to apprehension of pain. Calves are soft, nontender. Palpable pedal pulse. Objective Labs Result Diagrams: 05/28/20 05:15 05/28/20 05:15 Labs: Laboratory Results - last 24 hr 05/27/20 05/27/20 05/27/20 11:27 11:27 11:27 WBC 12.9 H RBC 3.52 L Hgb 12.4 Hct 37.4 MCV 106.2 H MCH 35.2 H MCHC 33.2 RDW 14.5 Plt Count 213 Neut % (Auto) 85.5 H Lymph % (Auto) 10.0 L [place] % (Auto) 4.2 Eos % (Auto) 0.1 L Baso % (Auto) 0.2 Neut # (Auto) 00975 H Lymph # (Auto) 1300 [place] # (Auto) 500 Eos # (Auto) 0 Baso # (Auto) 0 Sodium Cancelled 141 Potassium Cancelled 4.1 Chloride Cancelled 111 H Carbon Dioxide Cancelled 26 BUN Cancelled 7 Creatinine Cancelled 0.42 L Estimated GFR Cancelled > 60.0 BUN/Creatinine Ratio Cancelled 16.7 Glucose Cancelled 157 H Calcium Cancelled 8.4 Total Creatine Kinase Cancelled 34 Triglycerides Cholesterol LDL Cholesterol, Calc HDL Cholesterol COVID-19 PCR 05/27/20 05/27/20 05/28/20 11:30 20:45 05:15 WBC 10.2 RBC 3.09 L Hgb 11.5 L 11.1 L Hct 34.3 L 33.3 L MCV 107.5 H MCH 36.0 H MCHC 33.5 RDW 15.0 H Plt Count 183 Neut % (Auto) 69.0 Lymph % (Auto) 21.2 L [place] % (Auto) 8.8 Eos % (Auto) 0.9 L Baso % (Auto) 0.1 Neut # (Auto) 7100 H Lymph # (Auto) 2200 [place] # (Auto) 900 Eos # (Auto) 100 Baso # (Auto) 0 Sodium Potassium Chloride Carbon Dioxide BUN Creatinine Estimated GFR BUN/Creatinine Ratio Glucose Calcium Total Creatine Kinase Triglycerides Cholesterol LDL Cholesterol, Calc HDL Cholesterol COVID-19 PCR Negative 05/28/20 05:15 WBC RBC Hgb Hct MCV MCH MCHC RDW Plt Count Neut % (Auto) Lymph % (Auto) [place] % (Auto) Eos % (Auto) Baso % (Auto) Neut # (Auto) Lymph # (Auto) [place] # (Auto) Eos # (Auto) Baso # (Auto) Sodium 135 L Potassium 4.4 Chloride 105 Carbon Dioxide 31 BUN 9 Creatinine 0.53 Estimated GFR > 60.0 BUN/Creatinine Ratio 17.0 Glucose 126 H Calcium 8.2 L Total Creatine Kinase Triglycerides 52 Cholesterol 97 L LDL Cholesterol, Calc 31 HDL Cholesterol 56 COVID-19 PCR Assessment & Plan Assessment & Plan narrative: Patient POD#1 s/p Right short CMN for IT femur fracture. Pain control: Oxycodone increased to 10mg and Vistaril 25mg Q4hrs added for muscle spasm. Patient should mobilize with PT. Weightbear as tolerated on the right. Continue ASA 81mg BID for DVT prophylaxis. Discharge once stable per medicine team.
[2020-05-28] MEDS: OXYCODONE IR 10 MG TABLET PO ×4 (08:48→22:38)
--- NOTE | 2020-05-28 09:41 | DIET.PN ---
Dietary Progress Note Assessment: 69y F aadmitted after GLF resulting c hip fx referred to nutrition for PCM screening c BMI 14.9 and hip fx. Pt has not seen doctor in 20y, moved to [place] from [place] 1y ago which has compounded feelings of isolation during pandemic as has no local support system. Pt usual body weight is 110-120# for whole adult life, admitted to hospital at 97#. Pt at baseline smokes 1ppd cigarettes but over past 3mo has increased to 1.5-2ppd with associated reduced appetite, substituting cigarettes for food. For past 3mo pt consuming 1 meal/d (TV dinner, pasta) and sometimes 1 snack (cheese c crackers), and drinks 3 etoh equivalents daily (red wine). Pt reports new growth on olecranon process which developed over past 1w. Pt reports altered sleep patterns, having interrupted sleep from 530am-noon. HT: 172.7cm WT: 44.4kg (-11.2% in 3mo, severe) UBW: 50-54.5kg BMI: 14.9 (severe) Labs: Cr 0.42 L Nutrition Diagnosis: Severe Acute PCM r/t unhealthy coping during pandemic and reduced appetite aeb 11.2% unintended weight loss in 3mo (severe), BMI 14.9 (severe), pt reports substituting cigarettes for PO intake for past 3mo leading to <50% EER for 3 mo, pt reports 3+ etoh equivalents/d, pt admitted for hip fracture secondary to GLF and was on floor for 12+ hr prior to EMS transport. Interventions: 1. To support PCM and post-surgical healing recc ONS Ensure Enlive bid providing 50% kcals and 67% PRO in addition to meal trays. 2. To address pt being overwhelmed by volume of hospital meals, recc 1/2 portions and instructed pt to focus on intake of PRO portions. Diet Order: HH EER: 1400 kcal (30kcal/kg per PCM), 60g PRO (1.3g/kg per PCM, hip fx) Monitoring/Evaluations: weight, POs, ONS tolerance
[2020-05-28] MEDS: hydrOXYzine pamoate 25 MG CAPSULE PO ×3 (10:06→22:39)
--- NOTE | 2020-05-28 11:40 | PT.IIE ---
Current Diagnoses Displaced intertrochanteric fracture of right femur, initial encounter for closed fracture (05/27/20) Surgery Performed Operation Date: 05/27/20 16:00 Actual Procedures p Intramedullary Nailing Femur(Right) - Stanley Charlton MD Surgical History (Last Updated 05/28/20 @ 03:32 by BORIS Mcintosh) History of bilateral breast implants (Acute) History of cholecystectomy (Acute) History of hysterectomy (Acute) Medical History (Last Reviewed 05/27/20 @ 16:28 by Stanley Charlton MD) Current every day smoker (Acute) Healthy adult (Acute) Physical Therapy Inpatient Evaluation/Re-Eval M1 PT/OT-IP Prior Functional Status Start: 05/28/20 08:43 Freq: NEEDED Status: Active Protocol: Document 05/28/20 11:39 DE (Rec: 05/28/20 13:04 CT [id number]) Medical Review Prior Functional Status Medical History Reviewed Yes Diet/Fluid Consistency Regular Communication WNL. No deficits noted. Able to make needs known. Mobility and Gait IND for all mobility and amb without AD or limitations at baseline. Activities of Daily Living and IADL's IND for all ADLs and IADLs at baseline. Prior Functional Level (Other details) Pt has noticed increased difficulty with maintaining her balance. Pt has difficulty with carrying more than 1 grocery bag or dressing without leaning against a wall . Since Covid-19, her activity level has decreased. Social History Household Members none Living Arrangements Mobile home Number of Floors (Floors) One Floor Number of Stairs To Enter/Railing? 4 KARLA with L handrail ascending. Home Environment Standard Height Toilet,Tub/ Shower Home Equipment Straight Cane,Grab Bars In Shower Employment Status Retired Additional Social History Comment Pt has a friend, Kristina, who lives 1/2 block away but she won't be available full-time. Pt does not have any other support nearby. M2 PT-IP Current Condition Start: 05/28/20 08:43 Freq: NEEDED Status: Active Protocol: Document 05/28/20 11:39 DE (Rec: 05/28/20 13:04 CT [id number]) Physical Therapy Current Condition Current Condition Evaluation Date 05/28/20 Treatment Diagnosis GLF, R intertrochanteric femur fracture; Difficulty with walking Onset Date 05/27/20 Weight Bearing Status Weight Bearing Status Weight Bear as Tolerated M3 PT-IP Subjective Start: 05/28/20 08:43 Freq: NEEDED Status: Active Protocol: Document 05/28/20 11:39 DE (Rec: 05/28/20 13:04 DE [id number]) Subjective Physical Therapy Visit Type Type Initial Evaluation Visit Start Time 10:35 Visit Stop Time 11:39 Total Visit Minutes 64 Notes SPT Jan led the session under direct supervision of PT Tamiko throughout the entire session. Number of PASTING MACHINE OFFBEARER Visits 0 Physical Therapy Visit Comments Patient Comments Pt is agreeable to do PT. Patient Goals To return home. Therapy Pain Assessment Pain When Pain Assessed During Mobility Pain Present Pain Present Pain Reported Location Right Hip Intensity 10 Scale Used 6/10 at rest, 10/10 during mobility Description Aching,Acute Pain Behaviors Calling Out,Crying,Facial Grimacing,Guarding,Moaning, Wincing Pain Management Techniques Re-positioning,Timing of Activity with Medications M4 PT-IP Mobility and Gait Start: 05/28/20 08:43 Freq: NEEDED Status: Active Protocol: Document 05/28/20 11:39 DE (Rec: 05/28/20 13:04 CT [id number]) PT-Bed Mobility Assessment Supine to Sit Supine to Sit Total Assistance,2 Person Assistance,Head of Bed Elevated PT-Transfer Assessment Sit to and From Stand Sit to and from Stand Moderate Assistance,2 Person Assistance,Use of Upper Extremities Equipment Transfer Assistive Device Gait Belt,Front Wheeled Walker Orthotic/Prosthetic Devices or Brace: No Transfers Transfer Destination Chair Transfer Technique Forward and Lateral Scoot Transfer Ability Level of Assist Moderate Assistance,2 Person Assistance,Use of Upper Extremities Comments Mobility Comments Pt was in bed with HOB elevated at ~60 deg as PT and SPT arrived. Pain at resting was 6/10. Pt was unable to actively move at her hips d/t highly irritable and excruciating in her R hip. Pt was able to perform heel slides and hip abduction on the L with assist. Pt was able to move her ankles but had very limited ROM. Pt required 2P total assist and elevated HOB to sit up on the L side EOB. One person assisted at the legs and hips from the L side of bed while the other person assisted at the shoulder from the R side of bed. Pt demonstrated significant L lateral trunk lean in order to keep weight off her R hip. Pt was able to slowly put more weight on the R hip and come closer to midline. Pt then completed sit to stand with FWW and 2P mod assist. Pt had most of WB through her BUE and LLE. Pt then performed forward and lateral scoot to turn to the R side with FWW and 2P mod assist. Chair was brought right behind her and pt sat down with use of B armrests and 2P mod assist. Pt had highly irritable and excruciating pain throughout the entire mobilization. Pt had to move very slowly and take multiple breaks during and between mobilizations d/t increased pain. Pt felt more comfortable in reclined position in the chair. Pillows were placed on the back and on the R side for comfort. Call light placed within reach . Gait Assessment Comments Gait Comments Not assessed. Stair Climbing Assessment Comments Stair Climbing Comments Not assessed. PT-Balance Assessment Sitting Balance and Reactions Static Sitting Balance Ability Fair Dynamic Sitting Balance Ability Poor Standing Balance and Reactions Static Standing Balance Ability Poor Dynamic Standing Balance Ability Poor M5 PT-IP Objective Assessments Start: 05/28/20 08:43 Freq: NEEDED Status: Active Protocol: Document 05/28/20 11:39 DE (Rec: 05/28/20 13:04 CT [id number]) Orientation Orientation/Cognition Level of Alertness Alert Orientation Name,Age,Birthday,Month,Date, Year,Day of Week,Place, Situation Language Function Ability No Deficits Noted Safety Awareness Understands Safety Issues Memory Description No Deficits Noted Gross Range of Motion Lower Extremity ROM Assessment Bilaterally Impaired Impairments Unable to test d/t pain. Strength Lower Extremity Strength Assessment Bilaterally Impaired Comments Strength Comments Unable to test d/t pain. Coordination Assessment Gross Coordination Gross Coordination WNL Sensation Assessment Sensation Gross Sensation WNL Light Touch Intact Muscle Tone Muscle Tone WNL Yes M6 PT-IP Treatment Start: 05/28/20 08:43 Freq: NEEDED Status: Active Protocol: Document 05/28/20 11:39 DE (Rec: 05/28/20 13:04 DE [id number]) Physical Therapy Treatment Exercises Exercises Ankle Pumps Education Education Provided Weight Bearing Status,Safety Other Treatments Other Treatment Performed Pt education provided on WB status, safety, and role of PT . M7 PT-IP Assessment and Plan Start: 05/28/20 08:43 Freq: NEEDED Status: Active Protocol: Document 05/28/20 11:39 DE (Rec: 05/28/20 13:04 [email or web address] [id number]) PT Summary Assessment and Plan Potential Rehabilitation Potential Good Status of Condition at Evaluation Evolving Summary Impairments Pain,ROM,Strength,Balance,Bed Mobility,Transfers,Gait, Activity Tolerance Assessment Summary Hailey is a 69 yo female who was admitted to the hospital after a fall from a ladder that resulted in R intertrochanteric femur fracture s/p cephalomedulary nail post-op day 1. At baseline, pt was IND for all mobility, amb, and ADLs without AD or limitations. However, pt did report that she has noticed increased difficulty with balance recently. On evaluation, Pt required 2P total assist for bed mobility and required 2P mod assist for transfers. Pt had very limited mobility d/t highly irritable and severe pain. Pt was also very tearful and demonstrated depressed affect. Pt is unsafe for d/c at this time especially with the very minimal support she has at home. Pt will benefit from SNF rehab to improve her strength and mobility while receiving assistance. Goals Bed Mobility Goal Contact Guard Assistance Transfer Goal Contact Guard Assistance,Front Wheeled Walker Gait Goal Contact Guard Assistance,Front Wheel Walker Gait Distance 100 Other Goals Pt will perform 4 steps with L handrail ascending. Days to Meet Goals 10 Frequency of Treatment Frequency Of Treatment Twice a Day Treatment Plan Physical Therapy Treatment Plan Bed Mobility Training,Transfer Training,Gait Training, Therapeutic Exercise,Balance Retraining,Post Op Education, Discharge Planning Recommendations To Nursing Amount of Assist Needed 2 Person Assist Discharge Recommendations PT Discharge Recommendations SNF Rehab Equipment Needed for Home Before Deferred to rehab setting. Discharge Transportation Needs at Discharge Private Vehicle
--- NOTE | 2020-05-28 13:58 | PC.NURSE ---
Addendum entered by Zaina Jurado R.N. 05/28/20 16:01: Pt stated she is missing a set of her earrings that are studs and dark metal color. Pt states they were taken off 05/27 while in the ED just prior to her having a neck XRAY. Pt allowed this RN to search her purse, none were found. Pt did have a pack of cigarettes and a supportability engineer in a zipper pouch. Made pt aware that this cannot be left in the room. Offered pt to have this locked in the unit's safe until discharge along with her wallet. pt stated that her friend Allison would be picking these items up and taking them home for her. CUTTING PRESSMAN called to ED and no earrings found. Pt stated her friend Allison does not have either as the XRAY was taken after had left the ED. Original Note: Day Shift- Pt A&OX4, able to make her needs known using call light, bed alarm on. using PAOLO bed tilt function to off load pressure. Slight movement and pt is very painful to right hip area. Pain management plan discussed with KAREN Burgos early this AM, pt also made aware of adjustments. PRn Oxycodoen 10mg given at 0850 and 1155. Pain decreased from 9/10 to 5/10 to right hip incision area, around 1235, pt c/o right thigh spasms. PRn Vistaril had previously been given at 1010, will monitor. Dr. Bates also aware of this at this time, will try another dose and if pt continues to have spasms, may change PRN med. Right hip incision covered with intact aquacel dressing with scant spot drainage. CMS+. Pt refused to have RLE Calf SCD on, okay to put LLE Calf SCD on. Made aware of risks, impaired circulation, blood clots and benefits. Instructed for pt to perform ankle wave exercises. KAREN Lozano also aware of this. When pain better managed will attempt to place bilateral calf SCD's on. Pt OOB to recliner chair at 1130 with 2PA PT, very slow moving, pain increased and cried outloud with pain intermittently during session. Once pt settled into recliner chair, pain settled. to 5/10.
--- NOTE | 2020-05-28 14:50 | CM.DPC ---
CM sales assistants and salespersons gave pt. Medicaid application, [facility] care application and a list of physicians in [place] accepting Medicare new pts. CM sales assistants and salespersons discussed these resources with pt. who stated understanding and let pt. know per Deborah SPEARS, that [facility] can accept her when ready for DC. Eden Piedra, CLARY Kettle Loader
--- NOTE | 2020-05-28 14:59 | PM.PN.1 ---
Subjective Subjective Date Patient Seen: 05/28/20 Time Patient Seen: 14:59 Interval history: Ms. Hailey Mora is a 69-year-old female who reports no significant medical history who presented to the ER following a fall from the ladder and right hip pain. She was admitted with a right intertrochanteric femur fracture for which she underwent operative fixation. She had not sought medical care in a couple of decades. She currently denies any shortness of breath or chest pain. She was noted to have a right bundle branch block on her EKG, but no events on telemetry thus far. It is unclear as if the patient had a syncopal episode, however will treat as such and given a right bundle branch block have ordered her for an echocardiogram. She reports a lot of muscle spasms today and Atarax was started to see if this will help. She will likely need to discharge to a rehab facility as she lives home alone and is not mobilizing well after surgery. Exam Vital Signs (past 8 hours): - 05/28/20 07:22 05/28/20 12:13 Temperature 97.4 F L 97.4 F L Pulse Rate 89 91 H Respiratory Rate 16 16 Blood Pressure 151/65 H 127/58 L Pulse Oximetry 99 94 Oxygen Delivery Method Room Air Oxygen Flow Rate 0 Narrative Exam Narrative: GENERAL APPEARANCE: well developed, frail appearing malnourished oddly female lying semi recumbent in bed. HEENT: Atraumatic, PERRLA, conjunctiva clear sclera anicteric,, EOMs intact without nystagmus, no rhinorrhea, mucous membranes are moist and pink without lesions or exudate. NECK/THYROID: Neck pain on palpation low cervical spine midline, decreased ROM, no carotid bruit, no thyromegaly, trachea midline. LYMPH NODES: no cervical or supraclavicular lymphadenopathy. SKIN: Pallor, warm and dry, no visible lesions, rashes, ulcerations or petechiae. HEART: regular rate and rhythm, S1-S2, no murmur, no rubs or gallops, brisk capillary refill, no edema LUNGS: Diminished breath sounds bibasilar, no coarseness crackles or wheezing, no cough present CHEST: Symmetrical movement, no accessory muscle use, good tidal volume no pain to AP and lateral compression. ABDOMEN: Soft, no distention, pain on palpation right lower abdominal wall and pubic synthesis, no guarding or peritoneal signs, no organomegaly, active bowel tones. BACK: Nontender to palpation EXTREMITIES: Pain with any movement of the right lower extremity, distal CMS intact, BUE strength is 5/5 and symmetrical without deformity or joint effusions. NEUROLOGIC: AAO x 3, no focal neurologic deficits, cranial nerves II-XII grossly intact, sensation intact to light touch, hearing grossly normal to speech. PSYCH: Patient with flat affect, short response to questions, cooperative Objective Labs Result Diagrams: 05/28/20 05:15 05/28/20 05:15 Labs: Laboratory Results - last 24 hr 05/27/20 05/28/20 05/28/20 20:45 05:15 05:15 WBC 10.2 RBC 3.09 L Hgb 11.5 L 11.1 L Hct 34.3 L 33.3 L MCV 107.5 H MCH 36.0 H MCHC 33.5 RDW 15.0 H Plt Count 183 Neut % (Auto) 69.0 Lymph % (Auto) 21.2 L [place] % (Auto) 8.8 Eos % (Auto) 0.9 L Baso % (Auto) 0.1 Neut # (Auto) 7100 H Lymph # (Auto) 2200 [place] # (Auto) 900 Eos # (Auto) 100 Baso # (Auto) 0 Sodium 135 L Potassium 4.4 Chloride 105 Carbon Dioxide 31 BUN 9 Creatinine 0.53 Estimated GFR > 60.0 BUN/Creatinine Ratio 17.0 Glucose 126 H Calcium 8.2 L Triglycerides 52 Cholesterol 97 L LDL Cholesterol, Calc 31 HDL Cholesterol 56 Assessment & Plan Assessment & Plan narrative: This is a 69-year-old female who appears older than her stated age who has no significant medical history having had no medical care for 20 years. She was painting in her kitchen and descending ladder when she fell to the floor after a possible syncopal episode and complaining of neck pain and hip pain. 1. Ground level fall, loss of consciousness unclear if before or is a result of the fall, acute, active -the patient sustained a fall from an unknown height sustaining a loss of consciousness. She also had immediate right hip pain and was immobile on the floor for 12 hours. -the patient complains of midline low cervical spine pain possibly not notice due to distracting injury. C-spine x-rays did not show definitive fracture and her pain has improved today. Will not further evaluate with CT imaging. -the patient does not recall events of fall however she denies any antecedent symptoms. -patient's 12 lead shows a sinus rhythm with an incomplete left bundle branch block and minimal left ventricular hypertrophy with ST abnormalities in V1 through V3. -will treat as a syncopal episode and obtain an echocardiogram given her EKG abnormalities. Her lipid panel is unremarkable, as was her TSH and A1c values. 2. Right closed intertrochanteric femur fracture, acute, present on admission, active -Patient sustained a fall from ladder onto her right hip sustaining intertrochanteric fracture. No prior diagnosis of osteoporosis or mention on imaging. -Dr. Charlton has agreed to consult and is taking the patient directly to the OR. -postoperative care per the orthopedic team. 3. Tobacco Abuse, chronic -patient reports smoking for over 50 years and is currently smoking a pack and half a day since the onset of COVID 19 and isolation. -counseled patient on smoking cessation, patient is disinterested in quitting -continue Nicoderm patch. 4. Severe protein calorie malnutrition, chronic -patient is frail appearing with decreased muscle mass and has a BMI of 14.9. -patient will likely have poor healing of tissues due to nutritional status, delayed rehab due to loss of muscle mass -appreciate dietary consultation VTE prophylaxis: Per the surgical team aspirin 81 mg twice daily IV fluid: Lactated Ringer's at 75 cc/hour. Diet: Regular diet Code status: Patient states her wish to be DNR DNI, she declines to designate surrogate decision maker however Kristina Robles is listed is her emergency contact. Dispo: Anticipate discharge to retirement facility in approximately 2 days.
--- NOTE | 2020-05-28 15:04 | DI.ECHO.S_ITS ---
[facility] +---------+ [facility] +---------+ : : [address] : : : : [id number] : : : : Phone: [phone] Echocardiogram Report + + :Name: WILBER LOPEZ Study Date: 05/28/2020 Height: 68 in : :[facility] Weight: 97 lb : : Gender: Female BSA: 1.5 m2 : :: 1950 Age: 69 yrs BP: 136/70 mmHg: :Reason For Study: Dizziness, ABNORMAL EKG : :Ordering Physician: Flaquito : :Hospitalist Performed By: Keyla Martinez : :Referring: ELAINE YU : + + Interpretation Summary The ejection fraction is estimated to be 55-60%. Septal motion is consistent with conduction abnormality. There is mild mitral regurgitation. There is mild tricuspid regurgitation. There is a small pericardial effusion noted. There are no echocardiographic indications of cardiac tamponade. Procedure: A two-dimensional transthoracic echocardiogram with color flow and Doppler was performed. The study quality was technically adequate. There is no prior echocardiogram noted for this patient. The patient was in sinus rhythm with heart rates between 80-87 bpm during the exam. Left Ventricle: The left ventricle is normal in size. There is mild concentric left ventricular hypertrophy. The ejection fraction is estimated to be 55-60%. Septal motion is consistent with conduction abnormality. Diastolic parameters suggest a pseudonormalization pattern, consistent with probable elevated filling pressures. Right Ventricle: The right ventricle is normal in size and function. Atria: The left atrium is borderline dilated. The right atrium is normal in size. There is no Doppler evidence for an interatrial shunt. Mitral Valve: The mitral valve is normal in structure and function. There is mild mitral regurgitation. Aortic Valve: The aortic valve is not well visualized. There is no aortic valve stenosis. No aortic regurgitation is present. Tricuspid Valve: The tricuspid valve is normal in structure and function. There is mild tricuspid regurgitation. Pulmonic Valve: The pulmonic valve is not well visualized. There is no pulmonic valvular regurgitation. Great Vessels: The aortic root is normal size. The dimensions of the ascending aorta are normal. The IVC is of normal diameter and collapses greater than 50% with a sniff. This suggests a low right atrial pressure of 3 mm Hg. Pericardium/ Pleura There is a small pericardial effusion noted. There are no echocardiographic indications of cardiac tamponade. There is no pleural effusion. MMode/2D Measurements & Calculations LVIDd: 3.2 cm LVOT diam: 2.0 cm LVIDs: 2.3 cm Ao root diam: 3.0 cm FS: 27.6 % asc Aorta Diam: 2.8 cm EPSS: 0.64 cm Ao Arch Diam (Prox Trans): 2.2 cm IVSd: 1.2 cm LVPWd: 1.3 cm LV gong. diameter/BSA (cm/m^2): 2.2 LV sys. diameter/BSA (cm/m^2): 1.6 LA A2 area: 18.9 cm2 RA long axis: 3.8 cm LA A4 area: 14.2 cm2 RA area: 12.4 cm2 LA length (vol): 4.5 cm RA vol: 34.6 ml LA vol: 50.8 ml RA : 23.0 ml/m2 LA vol index: 33.8 ml/m2 IVC diam: 1.7 cm RVD1 (basal): 3.5 cm TAPSE: 2.1 cm Doppler Measurements & Calculations Ao V2 max: 133.8 cm/sec LVOT Max Byron: 107.5 cm/sec Ao V2 mean: 86.8 cm/sec LV V1 max P.6 mmHg Ao max P.2 mmHg LV V1 VTI: 19.2 cm Ao mean P.5 mmHg JAMEL(I,D): 2.7 cm2 Ao V2 VTI: 22.1 cm JAMEL(V,D): 2.5 cm2 sev ratio: 0.87 JAMEL indexed to BSA (cm^2/m^2): 1.8 MV E max byron: 84.8 cm/sec TR max byron: 280.3 cm/sec MV A max byron: 97.8 cm/sec TR max P.4 mmHg MV E/A: 0.87 PA V2 max: 79.1 cm/sec Med Peak E' Byron: 5.4 cm/sec PA V2 mean: 54.5 cm/sec E/E' med: 15.7 PA mean P.3 mmHg Lat Peak E' Byron: 5.8 cm/sec PA pr(Accel): 32.8 mmHg E/E' lat: 14.7 E/e' average: 15.2 MV dec time: 0.21 sec SV(LVOT): 59.4 ml Reading Physician:01:09 PM
--- NOTE | 2020-05-28 15:20 | OT.IPNOTE ---
Pt working with PT, therefore check on pt tomorrow for OT eval.
--- NOTE | 2020-05-28 16:19 | PT.IPTN ---
Current Diagnoses Displaced intertrochanteric fracture of right femur, initial encounter for closed fracture (05/27/20) Surgery Performed Operation Date: 05/27/20 16:00 Actual Procedures p Intramedullary Nailing Femur(Right) - Stanley Charlton MD Physical Therapy Treatment Note M2 PT-IP Current Condition Start: 05/28/20 08:43 Freq: NEEDED Status: Active Protocol: Document 05/28/20 11:39 DE (Rec: 05/28/20 13:04 DE [id number]) Physical Therapy Current Condition Current Condition Evaluation Date 05/28/20 Treatment Diagnosis GLF, R intertrochanteric femur fracture; Difficulty with walking Onset Date 05/27/20 Weight Bearing Status Weight Bearing Status Weight Bear as Tolerated M3 PT-IP Subjective Start: 05/28/20 08:43 Freq: NEEDED Status: Active Protocol: Document 05/28/20 15:52 DE (Rec: 05/28/20 16:17 DE [id number]) Subjective Physical Therapy Visit Type Type Treatment Note Visit Start Time 14:55 Visit Stop Time 15:10 Total Visit Minutes 15 Notes ANTOINETTE Montoya led the session under direct supervision of PT Tamiko throughout the entire session. Number of DREDGE WORKER Visits 0 Physical Therapy Visit Comments Patient Comments Pt is agreeable to do PT. Patient Goals To return home. Therapy Pain Assessment Pain When Pain Assessed During Mobility Pain Present Pain Present Pain Reported Location Right Hip Intensity 10 Scale Used 6/10 at rest, 10/10 during mobility Description Aching,Acute Pain Behaviors Calling Out,Crying,Facial Grimacing,Guarding,Moaning, Wincing Pain Management Techniques Re-positioning,Timing of Activity with Medications M4 PT-IP Mobility and Gait Start: 05/28/20 08:43 Freq: NEEDED Status: Active Protocol: Document 05/28/20 15:52 DE (Rec: 05/28/20 16:17 DE [id number]) PT-Bed Mobility Assessment Sit to Supine Sit to Supine Total Assistance,2 Person Assistance,Head of Bed Elevated PT-Transfer Assessment Sit to and From Stand Sit to and from Stand Moderate Assistance,2 Person Assistance,Use of Upper Extremities Equipment Transfer Assistive Device Gait Belt,Front Wheeled Walker Orthotic/Prosthetic Devices or Brace: No Transfers Transfer Destination Bed Transfer Technique Forward/Backward and Lateral Scoot Transfer Ability Level of Assist Minimal Assistance,Moderate Assistance,2 Person Assistance ,Use of Upper Extremities Comments Mobility Comments Pt was sitting in chair as PT and SPT arrived. Pt completed sit to stand with FWW, use of B armrests, and 2P mod assist. Pt then performed forward/ backward and lateral scoot to transfer to the bed on the R side of the chair with FWW and 2P min assist. Pt sat down on the L side of the bed with use of BUE on the bed and 2P min assist. Pt then required 2P total assist for sit to supine and lateral scooting in bed. Pt had to move very slowly throughout the transfers and bed mobility d/t highly irritable pain at her R hip. Call light placed within reach. 2 imaging technicians came into the room for x-ray of the R hip. PT and SPT handed her off to the technicians and left the room. Gait Assessment Comments Gait Comments Not assessed. Stair Climbing Assessment Comments Stair Climbing Comments Not assessed. PT-Balance Assessment Sitting Balance and Reactions Static Sitting Balance Ability Fair Dynamic Sitting Balance Ability Poor Standing Balance and Reactions Static Standing Balance Ability Poor Dynamic Standing Balance Ability Poor M5 PT-IP Objective Assessments Start: 05/28/20 08:43 Freq: NEEDED Status: Active Protocol: Document 05/28/20 11:39 DE (Rec: 05/28/20 13:04 DE [id number]) Orientation Orientation/Cognition Level of Alertness Alert Orientation Name,Age,Birthday,Month,Date, Year,Day of Week,Place, Situation Language Function Ability No Deficits Noted Safety Awareness Understands Safety Issues Memory Description No Deficits Noted Gross Range of Motion Lower Extremity ROM Assessment Bilaterally Impaired Impairments Unable to test d/t pain. Strength Lower Extremity Strength Assessment Bilaterally Impaired Comments Strength Comments Unable to test d/t pain. Coordination Assessment Gross Coordination Gross Coordination WNL Sensation Assessment Sensation Gross Sensation WNL Light Touch Intact Muscle Tone Muscle Tone WNL Yes M6 PT-IP Treatment Start: 05/28/20 08:43 Freq: NEEDED Status: Active Protocol: Document 05/28/20 15:52 DE (Rec: 05/28/20 16:17 DE [id number]) Physical Therapy Treatment Exercises Exercises Ankle Pumps Education Education Provided Weight Bearing Status,Safety Other Treatments Other Treatment Performed Pt education provided on WB status, safety, and role of PT . M7 PT-IP Assessment and Plan Start: 05/28/20 08:43 Freq: NEEDED Status: Active Protocol: Document 05/28/20 15:52 DE (Rec: 05/28/20 16:17 DE [id number]) PT Summary Assessment and Plan Potential Rehabilitation Potential Good Status of Condition at Evaluation Evolving Summary Impairments Pain,ROM,Strength,Balance,Bed Mobility,Transfers,Gait, Activity Tolerance Assessment Summary Pt demonstrated improved pain tolerance and mobility in the PM. Pt still required 2P min- mod assist with FWW for transfers and 2P total assist for sit to supine but had less pain and was able to move faster. However, pt is far from her baseline and her mobility is still significantly limited d/t highly irritable pain. Pt continues to be excellent candidate for SNF rehab. Goals Bed Mobility Goal Contact Guard Assistance Transfer Goal Contact Guard Assistance,Front Wheeled Walker Gait Goal Contact Guard Assistance,Front Wheel Walker Gait Distance 100 Other Goals Pt will perform 4 steps with L handrail ascending. Days to Meet Goals 10 Frequency of Treatment Frequency Of Treatment Twice a Day Treatment Plan Physical Therapy Treatment Plan Bed Mobility Training,Transfer Training,Gait Training, Therapeutic Exercise,Balance Retraining,Post Op Education, Discharge Planning Recommendations To Nursing Amount of Assist Needed 2 Person Assist Discharge Recommendations PT Discharge Recommendations SNF Rehab Equipment Needed for Home Before Deferred to rehab setting. Discharge Transportation Needs at Discharge Private Vehicle
--- NOTE | 2020-05-28 16:50 | CM.DANOTE ---
DCP/Assessment: Reviewed chart. Patient is a 69yr female admitted to [facility] with right hip pain. No PCP identified. Primary payor is 1)Medicare. Met with patient today explained role. Patient reports she resides alone in [place], [place]. Patient fell at home and underwent right hip repair on 05-27-20. Current recommendations from therapy are SNF at time of d/c. Patient aware and agreeable. Choice list provided and [facility] chosen. Placed call to [facility], spoke with Shabana she will review for admit. P: [facility] accepted patient when medically stable. D/C expected on 05-30-20. PASRR needed. Patient will need to be told she cannot smoke at facility, nicotine patch recommended. REGAN Herbert Discharge Planning/Care Management CM Discharge Assessment Start: 05/28/20 16:41 Freq: Status: Active Protocol: Document 05/28/20 16:41 KJS (Rec: 05/28/20 16:49 KJS [id number]) Discharge Planning Assessment Assigned Sr. Manager Corporate Communications REGAN Herbert Contact Information Nicole Robles (friend) Advance Directives? No History Provided By Patient,Medical Record Prior Living Arrangements Mobile home Household Members none Type of transporation used prior to Drives own vehicle admit Independent with ADL's Yes Is patient alert and oriented? Yes Caregiver for Another No Barriers to Discharge No Discharge Plan Home Medicare Choice List Provided Yes SNF/HH Preference [facility] Contact Name/Phone December phone# [phone] Whiteboard Updated in Patient Room with Yes name and ext. # of Sr. Manager Corporate Communications Review Status In Process Next Review Type Continued Stay Review
--- NOTE | 2020-05-28 17:36 | PC.NURSE ---
Addendum entered by Obdulia Cao R.N. 05/28/20 20:10: Repositioned for comfort. Tele shows NSR/BBB per ICU staff. IVF continue as per orders w/o incidence. SCD off for HS. F/C patent clear, yellow urine. Call light w/in reach, bed alarm on for pt safety. Continue w/plan of care. Original Note: Pt watching TV @ this time. Denies discomfort. Lungs slightly course, SpO2 97% RA HL RAC intact/patent. Dsg CDI. Higgins cath patent clear, yellow urine. Call light w/in reach, bed alarm on for pt safety.
[2020-05-28 20:39] LABS: Magnesium 1.5 mg/dL (1.6-2.3)
[2020-05-29] MEDS: hydrOXYzine pamoate 25 MG CAPSULE PO (05:25)
[2020-05-29] MEDS: OXYCODONE IR 10 MG TABLET PO ×5 (05:25→20:24)
[2020-05-29 05:56] VITALS: BP 138/72; PULSE 73; RESP 16; TEMP 37.3; O2SAT 96
[2020-05-29 07:43] VITALS: BP 141/76; PULSE 96; RESP 16; TEMP 36.7; O2SAT 93
[2020-05-29] MEDS: NICOTINE 21 MG PATCH TOP (09:06)
[2020-05-29] MEDS: ACETAMINOPHEN 325 MG TABLET 975 MG PO ×3 (09:07→20:23)
[2020-05-29] MEDS: ASPIRIN EC 81 MG TABLET PO ×2 (09:07→20:23)
[2020-05-29] MEDS: DOCUSATE 100 MG CAPSULE PO ×2 (09:07→20:23)
[2020-05-29 09:25] VITALS: PULSE 88; RESP 20; O2SAT 96
--- NOTE | 2020-05-29 09:49 | P.PN_ITS ---
Subjective Subjective Date Patient Seen: 05/29/20 Time Patient Seen: 07:49 Interval history: Pain is moderate. Denies fever chills. No nausea/ vomiting. Patient lives alone. Exam Vital Signs (past 8 hours): - 05/29/20 05:56 05/29/20 07:43 05/29/20 09:25 Temperature 99.1 F 98.0 F Pulse Rate 73 96 H 88 Respiratory Rate 16 16 20 Blood Pressure 138/72 141/76 H Pulse Oximetry 96 93 96 Oxygen Delivery Method Room Air Oxygen Flow Rate 0 Narrative Exam Narrative: 61-year-old female lying comfortably in bed in no apparent distress. Hip dressings are clean, dry and intact. Motor functions intact distal right lower extremity. Sensation grossly intact to light touch right lower extremity. Both calves are soft and nontender. Both legs are warm and dry. Objective Labs Result Diagrams: 05/28/20 05:15 05/28/20 05:15 Labs: Laboratory Results - last 24 hr 05/28/20 05:15 Magnesium 1.5 L Assessment & Plan Post-op Postoperative Procedures: Procedures Operation Date: 05/27/20 16:00 Actual Procedures Side Surgeon p Intramedullary Nailing Femur Right Stanley Charlton MD Postop day 2 status post right CMN for IT Femur Fracture. Mobilize with PT. Weightbearing as tolerated right lower extremity. Aspirin for DVT prophylaxis. Patient is being followed by Medicine for severe protein calorie malnutrition, chronic. Tobacco abuse, chronic. Patient is currently 2 person assist with physical therapy. Physical therapy has recommended correction facility. Likely discharge to correction facility tomorrow.
[2020-05-29 11:05] VITALS: BP 129/72; PULSE 96; RESP 16; TEMP 36.7; O2SAT 91
[2020-05-29] MEDS: SODIUM CHLORIDE 0.9% FLUSH 10 ML IV ×2 (12:25→20:24)
--- NOTE | 2020-05-29 12:34 | OT.IP.EVAL ---
Current Diagnoses Displaced intertrochanteric fracture of right femur, initial encounter for closed fracture (05/27/20) Surgery Performed Operation Date: 05/27/20 16:00 Actual Procedures p Intramedullary Nailing Femur(Right) - Stanley Charlton MD Past Medical History (Last Reviewed 05/27/20 @ 16:28 by Stanley Charlton MD) Current every day smoker (Acute) Healthy adult (Acute) Surgical History (Last Updated 05/28/20 @ 03:32 by BORIS Mcintosh) History of bilateral breast implants (Acute) History of cholecystectomy (Acute) History of hysterectomy (Acute) Occupational Therapy Inpatient Evaluation/Re-Eval M1 PT/OT-IP Prior Functional Status Start: 05/28/20 08:43 Freq: NEEDED Status: Active Protocol: Document 05/28/20 11:39 DE (Rec: 05/28/20 13:04 DE [id number]) Medical Review Prior Functional Status Medical History Reviewed Yes Diet/Fluid Consistency Regular Communication WNL. No deficits noted. Able to make needs known. Mobility and Gait IND for all mobility and amb without AD or limitations at baseline. Activities of Daily Living and IADL's IND for all ADLs and IADLs at baseline. Prior Functional Level (Other details) Pt has noticed increased difficulty with maintaining her balance. Pt has difficulty with carrying more than 1 grocery bag or dressing without leaning against a wall . Since -, her activity level has decreased. Social History Household Members none Living Arrangements Mobile home Number of Floors (Floors) One Floor Number of Stairs To Enter/Railing? 4 KARLA with L handrail ascending. Home Environment Standard Height Toilet,Tub/ Shower Home Equipment Straight Cane,Grab Bars In Shower Employment Status Retired Additional Social History Comment Pt has a friend, Kristina, who lives 1/2 block away but she won't be available full-time. Pt does not have any other support nearby. M1 PT/OT-IP Prior Functional Status Start: 05/29/20 12:18 Freq: NEEDED Status: Active Protocol: Document 05/29/20 12:19 RM (Rec: 05/29/20 12:34 RM [id number]) Medical Review Prior Functional Status Medical History Reviewed Yes Diet/Fluid Consistency Regular Communication WNL. No deficits noted. Able to make needs known. Mobility and Gait IND for all mobility and amb without AD or limitations at baseline. Activities of Daily Living and IADL's IND for all ADLs and IADLs at baseline. Prior Functional Level (Other details) Pt has noticed increased difficulty with maintaining her balance. Pt has difficulty with carrying more than 1 grocery bag or dressing without leaning against a wall . Since -, her activity level has decreased. Social History Household Members none Living Arrangements Mobile home Home Environment Standard Height Toilet,Tub/ Shower Home Equipment Straight Cane,Grab Bars In Shower M2 OT-IP Current Condition Start: 05/29/20 12:18 Freq: Status: Active Protocol: Document 05/29/20 12:19 RM (Rec: 05/29/20 12:34 RM [id number]) Occupational Therapy Current Condition Current Condition Evaluation Date 05/29/20 Treatment Diagnosis GLF w/ R intertrochanteric fx s/p cephalomedullary nail Diagnosis Onset Date 05/27/20 Weight Bearing Status Weight Bearing Status Weight Bear as Tolerated M3 OT- IP Subjective and Pain Start: 05/29/20 12:18 Freq: Status: Active Protocol: Document 05/29/20 12:19 RM (Rec: 05/29/20 12:34 RM [id number]) OT- Subjective Occupational Therapy Visit Type Type Initial Evaluation Visit Start Time 10:22 Visit Stop Time 10:59 Total Visit Minutes 37 Occupational Therapy Visit Comments Patient Comments I'm going to [facility]. I couldn't even get up my stairs to go home now. Patient/Caregiver Goals return home alone OT Pain Assessment Pain When Pain Assessed During Mobility Pain Present Pain Present Pain Reported Location Right Hip Intensity 6 Scale Used Numeric (0 - 10) Description With Movement Pain Behaviors Facial Grimacing,Guarding, Moaning,Wincing Management Techniques Apply Cold,Modification of Treatment,Re-positioning, Timing of Activity with Medications M4 OT- IP ADL's Start: 05/29/20 12:18 Freq: Status: Active Protocol: Document 05/29/20 12:19 RM (Rec: 05/29/20 12:34 RM [id number]) OT JZJ-Beyp-Eeargtn General Evaluation Self-Feeding Ability Independent OT ADL-Grooming General Evaluation Areas Needing Assistance Retrieving/Set-up of Grooming Items Comments OT Grooming Comments Currently unable to tolerate at sink, requires s/u at bedside OT ADL-Oral Care General Eval Areas of Assistance Retrieving/Set-Up of Items Comments Oral Care Comments currently unable to tolerate at sink, requires s/u at bedside OT ADL-Dressing General Eval Upper Body Dressing Ability Independent Lower Body Dressing Ability Maximum Assistance Areas Needing Assistance Retrieving/Set-up of Clothing, Underpants/Brief,Pants/Shorts, Socks,Shoes Comments OT Dressing Comments Unable to participate w/ LB dressing d/t pain, decreased ROM, and strength OT ADL-Toileting General Evaluation Areas Needing Assistance Empty Catheter or Colostomy, Manage Clothing,Perform Perineal Hygiene Comments OT Toileting Comments not assessed, currently unable to tolerate ambulation to for toileting. If pain controled can trial BSC. OT ADL-Bathing Comments OT Bathing Comments not assessed, anticipate need for assist w/ LB bathing and safe transfer M5 OT- IP IADL's Start: 05/29/20 12:18 Freq: Status: Active Protocol: Document 05/29/20 12:19 RM (Rec: 05/29/20 12:34 RM [id number]) OT-Instrumental Activities of Daily Living Deficits IADL Deficits Identified Deficits Home Safety Awareness Home Safety Comments Currently unable to perform IADLs d/t pain, decreased strength/ROM, and decreased activity tolerance. M6 OT- IP Functional Cognition Start: 05/29/20 12:18 Freq: Status: Active Protocol: Document 05/29/20 12:19 RM (Rec: 05/29/20 12:34 RM [id number]) Cognitive Factors Limiting Selfcare Function Cognitive Ability Level of Alertness Alert Attention Span Ability Capable of Focused Attention, Capable of Sustained Attention Ability to Follow Commands Able to Follow Multi-Step Commands Memory Description No Deficits Noted Safety Awareness No Deficits Noted Problem Solving Ability No deficits Noted Executive Function Ability No Deficits Noted Abstract Thinking Ability No Deficits Noted OT- Vision and Hearing OT- Hearing Assessment OT- Hearing Assessment WFL OT- Vision Assessment Visual Acuity WFL,Glasses For Reading M7 OT- IP Mobility and Balance Start: 05/29/20 12:18 Freq: Status: Active Protocol: Document 05/29/20 12:19 RM (Rec: 05/29/20 12:34 RM [id number]) OT- Bed Mobility Assessment Rolling Type of Rolling Roll to Left Level of Assistance Moderate Assistance,2 Person Assistance Supine to Sit Supine to Sit Assist Maximum Assistance,2 Person Assistance Scooting Scooting to Edge of Bed Minimal Assistance,1 Person Assistance OT-Transfer Assessment Sit to and From Stand Sit to and from Stand Contact Guard Assistance Transfers Transfer Ability Contact Guard Assistance Technique Transfer Destination Chair Devices Transfer Assistive Devices Front Wheeled Walker OT- Gait Assessment Comments Gait Ability Comments Unable to tolerate ambulation d/t pain, transfer status is improved from yesterday with PT. Hope to trial ambulation to BR tomorrow. OT- Balance Assessment Sitting Balance and Reactions Static Sitting Balance Ability Good Dynamic Sitting Balance Ability Good Standing Balance and Reactions Static Standing Balance Ability Fair Dynamic Standing Balance Ability Poor M8 OT- IP Objective Assessments Start: 05/29/20 12:18 Freq: Status: Active Protocol: Document 05/29/20 12:19 RM (Rec: 05/29/20 12:34 RM [id number]) OT Gross Range of Motion Upper Extremity Range of Motion Assessment Within Functional Limits OT Strength Upper Extremity Strength Assessment Within Functional Limits M9 OT- IP Assessment and Plan Start: 05/29/20 12:18 Freq: Status: Active Protocol: Document 05/29/20 12:19 RM (Rec: 05/29/20 12:34 RM [id number]) OT Summary Assessment and Plan Potential Rehabilitation Potential Good Analytic Complexity at Evaluation High Summary OT Impairments Pain,Range of Motion,Strength, Balance,Functional Mobility, Dressing,Toileting,Bathing, Toilet Transfers,Shower Transfers,Activity Tolerance Goals Dressing Goal Minimal Assistance Toileting Goal Minimal Assistance Toilet Transfer Goal Contact Guard Assistance Shower Transfer Goal Contact Guard Assistance Frequency of Treatment Frequency Of Treatment Once a Day Treatment Plan OT Treatment Plan ADL Training,Functional Mobility Discharge Recommendations OT Discharge Recommendations SNF Rehab Home Equipment Needs defer AE/DME recommendations to SNF as will depend on her functional status closer to discharge. Did initiate discussion of tub bench vs shower seat as she has a tub shower that will likely be difficult for her to step into even w/ additional recovery. Transportation Needs at Discharge Wheelchair/Cabulance
--- NOTE | 2020-05-29 13:26 | PT.IPTN ---
Current Diagnoses Displaced intertrochanteric fracture of right femur, initial encounter for closed fracture (05/27/20) Surgery Performed Operation Date: 05/27/20 16:00 Actual Procedures p Intramedullary Nailing Femur(Right) - Stanley Charlton MD Physical Therapy Treatment Note M2 PT-IP Current Condition Start: 05/28/20 08:43 Freq: NEEDED Status: Active Protocol: Document 05/28/20 11:39 DE (Rec: 05/28/20 13:04 DE [id number]) Physical Therapy Current Condition Current Condition Evaluation Date 05/28/20 Treatment Diagnosis GLF, R intertrochanteric femur fracture; Difficulty with walking Onset Date 05/27/20 Weight Bearing Status Weight Bearing Status Weight Bear as Tolerated M3 PT-IP Subjective Start: 05/28/20 08:43 Freq: NEEDED Status: Active Protocol: Document 05/29/20 11:43 DE (Rec: 05/29/20 12:08 DE [id number]) Subjective Physical Therapy Visit Type Type Treatment Note Visit Start Time 10:22 Visit Stop Time 10:47 Total Visit Minutes 25 Notes SPT Jan led the session under direct supervision of PT Tamiko throughout the entire session. Number of SAND SHOVELER Visits 0 Physical Therapy Visit Comments Patient Comments Pt is agreeable to do PT. Patient Goals To return home. Therapy Pain Assessment Pain When Pain Assessed During Mobility Pain Present Pain Present Pain Reported Location Right Hip Intensity 8 Scale Used Contreras-Dominguez (Faces) Description Aching,Acute Pain Behaviors Facial Grimacing,Guarding, Wincing Pain Management Techniques Re-positioning,Timing of Activity with Medications M4 PT-IP Mobility and Gait Start: 05/28/20 08:43 Freq: NEEDED Status: Active Protocol: Document 05/29/20 11:43 DE (Rec: 05/29/20 12:08 DE [id number]) PT-Bed Mobility Assessment Supine to Sit Supine to Sit Total Assistance,2 Person Assistance,Head of Bed Elevated PT-Transfer Assessment Sit to and From Stand Sit to and from Stand Minimal Assistance,1 Person Assistance,Use of Upper Extremities Equipment Transfer Assistive Device Gait Belt,Front Wheeled Walker Orthotic/Prosthetic Devices or Brace: No Transfers Transfer Destination Bed Transfer Technique Forward/Backward Scoot Transfer Ability Level of Assist Minimal Assistance,1 Person Assistance,Use of Upper Extremities Comments Mobility Comments Pt was lying supine in bed with elevated HOB as PT, SPT, and OT arrived. Pt attempted to perform logroll but unable to complete d/t increased pain . Pt required 2P total assist and elevated HOB for supine to sit at L side EOB. Pt then performed sit to stand with 1P min assist and FWW. Pt had to move very slowly and lacked R knee extension in standing. Pt then performed forward/ backward scoot to sit down on the chair on the L side, requiring 1P min assist and FWW. Pt had difficulty with moving her RLE and keeping it straight during transfer. Pt was reclined back in the chair with pillows on the back and on the R side. Call light placed within reach. Gait Assessment Comments Gait Comments Not assessed. Stair Climbing Assessment Comments Stair Climbing Comments Not assessed. PT-Balance Assessment Sitting Balance and Reactions Static Sitting Balance Ability Fair Dynamic Sitting Balance Ability Poor Standing Balance and Reactions Static Standing Balance Ability Poor Dynamic Standing Balance Ability Poor M5 PT-IP Objective Assessments Start: 05/28/20 08:43 Freq: NEEDED Status: Active Protocol: Document 05/28/20 11:39 DE (Rec: 05/28/20 13:04 VT [id number]) Orientation Orientation/Cognition Level of Alertness Alert Orientation Name,Age,Birthday,Month,Date, Year,Day of Week,Place, Situation Language Function Ability No Deficits Noted Safety Awareness Understands Safety Issues Memory Description No Deficits Noted Gross Range of Motion Lower Extremity ROM Assessment Bilaterally Impaired Impairments Unable to test d/t pain. Strength Lower Extremity Strength Assessment Bilaterally Impaired Comments Strength Comments Unable to test d/t pain. Coordination Assessment Gross Coordination Gross Coordination WNL Sensation Assessment Sensation Gross Sensation WNL Light Touch Intact Muscle Tone Muscle Tone WNL Yes M6 PT-IP Treatment Start: 05/28/20 08:43 Freq: NEEDED Status: Active Protocol: Document 05/29/20 11:43 DE (Rec: 05/29/20 12:08 DE [id number]) Physical Therapy Treatment Exercises Exercises Ankle Pumps Education Education Provided Weight Bearing Status,Safety M7 PT-IP Assessment and Plan Start: 05/28/20 08:43 Freq: NEEDED Status: Active Protocol: Document 05/29/20 11:43 DE (Rec: 05/29/20 12:08 DE [id number]) PT Summary Assessment and Plan Potential Rehabilitation Potential Good Status of Condition at Evaluation Evolving Summary Impairments Pain,ROM,Strength,Balance,Bed Mobility,Transfers,Gait, Activity Tolerance Assessment Summary Pt continues to improve pain and mobility. Pt still required 2P total assist for supine to sit but had less pain than yesterday. Pt was able to perform sit to stand and forward/backward scoot transfer to the chair with 1P min assist and FWW. However, pt had difficulty with moving her RLE d/t pain and weakness. Pt still demonstrates very limited strength, ROM, balance , and activity tolerance. PT anticipates pt will d/c to [facility] tomorrow. Goals Bed Mobility Goal Contact Guard Assistance Transfer Goal Contact Guard Assistance,Front Wheeled Walker Gait Goal Contact Guard Assistance,Front Wheel Walker Gait Distance 100 Other Goals Pt will perform 4 steps with L handrail ascending. Days to Meet Goals 10 Frequency of Treatment Frequency Of Treatment Twice a Day Treatment Plan Physical Therapy Treatment Plan Bed Mobility Training,Transfer Training,Gait Training, Therapeutic Exercise,Balance Retraining,Post Op Education, Discharge Planning Recommendations To Nursing Amount of Assist Needed 2 Person Assist Discharge Recommendations PT Discharge Recommendations SNF Rehab Equipment Needed for Home Before Deferred to rehab setting. Discharge Transportation Needs at Discharge Private Vehicle This treatment note is written by Jan Mac , ANTOINETTE. This is approved and reviewed by Remigio Kurtz, PT
--- NOTE | 2020-05-29 14:11 | P.PN_ITS ---
Subjective Subjective Date Patient Seen: 05/29/20 Time Patient Seen: 14:12 Interval history: Ms. Hailey Mora is a 69-year-old female who reports no significant medical history who presented to the ER following a fall from the ladder and right hip pain. She was admitted with a right intertrochanteric femur fracture for which she underwent operative fixation on 05/27/20. She is recovering well, pain control is improved today. Possible discharge tomorrow to SNF. Patient tolerating a diet today without difficulty. Exam Vital Signs (past 8 hours): - 05/29/20 07:43 05/29/20 09:25 05/29/20 11:05 Temperature 98.0 F 98.0 F Pulse Rate 96 H 88 96 H Respiratory Rate 16 20 16 Blood Pressure 141/76 H 129/72 Pulse Oximetry 93 96 91 Oxygen Delivery Method Room Air Oxygen Flow Rate 0 Narrative Exam Narrative: GENERAL APPEARANCE: well developed, frail appearing malnourished oddly female lying semi recumbent in bed. HEENT: Atraumatic, PERRLA, conjunctiva clear sclera anicteric,, EOMs intact without nystagmus, no rhinorrhea, mucous membranes are moist and pink without lesions or exudate. NECK/THYROID: Neck pain on palpation low cervical spine midline, decreased ROM, no carotid bruit, no thyromegaly, trachea midline. LYMPH NODES: no cervical or supraclavicular lymphadenopathy. SKIN: Pallor, warm and dry, no visible lesions, rashes, ulcerations or petechi ae. HEART: regular rate and rhythm, S1-S2, no murmur, no rubs or gallops, brisk capillary refill, no edema LUNGS: Diminished breath sounds bibasilar, no coarseness crackles or wheezing, no cough present CHEST: Symmetrical movement, no accessory muscle use, good tidal volume no pain to AP and lateral compression. ABDOMEN: Soft, no distention, pain on palpation right lower abdominal wall and pubic synthesis, no guarding or peritoneal signs, no organomegaly, active bowel tones. BACK: Nontender to palpation EXTREMITIES: Pain with any movement of the right lower extremity, distal CMS intact, BUE strength is 5/5 and symmetrical without deformity or joint effusions. NEUROLOGIC: AAO x 3, no focal neurologic deficits, cranial nerves II-XII grossly intact, sensation intact to light touch, hearing grossly normal to speech. PSYCH: Patient with flat affect, short response to questions, cooperative Objective Labs Result Diagrams: 05/28/20 05:15 05/28/20 05:15 Labs: Laboratory Results - last 24 hr 05/28/20 05:15 Magnesium 1.5 L Assessment & Plan Assessment & Plan narrative: This is a 69-year-old female who appears older than her stated age who has no significant medical history having had no medical care for 20 years. She was painting in her kitchen and descending ladder when she fell to the floor after a possible syncopal episode and complaining of neck pain and hip pain. 1. Ground level fall, loss of consciousness unclear if before or is a result of the fall, acute, active -the patient sustained a fall from an unknown height sustaining a loss of consciousness. She also had immediate right hip pain and was immobile on the floor for 12 hours. -the patient complains of midline low cervical spine pain possibly not notice due to distracting injury. C-spine x-rays did not show definitive fracture and her pain has improved today. Will not further evaluate with CT imaging. -the patient does not recall events of fall however she denies any antecedent symptoms. -patient's 12 lead shows a sinus rhythm with an incomplete left bundle branch block and minimal left ventricular hypertrophy with ST abnormalities in V1 through V3. Echocardiogram performed for possible sycnopal episode shows evidence of diastolic dysfunction with pseudonormalization pattern but a normal EF and no significant valvular pathologies. She remains asymptomatic without chest pain. No events on telemetry. Her lipid panel is unremarkable, as was her TSH and A1c values. 2. Right closed intertrochanteric femur fracture, acute, present on admission, active -Patient sustained a fall from ladder onto her right hip sustaining intertrochanteric fracture. No prior diagnosis of osteoporosis or mention on imaging. -Dr. Charlton performed operative interventions on 05/27/20. -postoperative care per the orthopedic team. 3. Tobacco Abuse, chronic -patient reports smoking for over 50 years and is currently smoking a pack and h zena a day since the onset of COVID 19 and isolation. -counseled patient on smoking cessation, patient is disinterested in quitting -continue Nicoderm patch. 4. Severe protein calorie malnutrition, chronic -patient is frail appearing with decreased muscle mass and has a BMI of 14.9. -patient will likely have poor healing of tissues due to nutritional status, delayed rehab due to loss of muscle mass -appreciate dietary consultation VTE prophylaxis: Per the surgical team aspirin 81 mg twice daily Diet: Regular diet Code status: Patient states her wish to be DNR DNI, she declines to designate surrogate decision maker however Kristina Robles is listed is her emergency contact. Dispo: Anticipate discharge to residential facility tomorrow.
--- NOTE | 2020-05-29 15:06 | PT.IPTN ---
Current Diagnoses Displaced intertrochanteric fracture of right femur, initial encounter for closed fracture (05/27/20) Surgery Performed Operation Date: 05/27/20 16:00 Actual Procedures p Intramedullary Nailing Femur(Right) - Stanley Charlton MD Physical Therapy Treatment Note M2 PT-IP Current Condition Start: 05/28/20 08:43 Freq: NEEDED Status: Active Protocol: Document 05/28/20 11:39 DE (Rec: 05/28/20 13:04 DE [id number]) Physical Therapy Current Condition Current Condition Evaluation Date 05/28/20 Treatment Diagnosis GLF, R intertrochanteric femur fracture; Difficulty with walking Onset Date 05/27/20 Weight Bearing Status Weight Bearing Status Weight Bear as Tolerated M3 PT-IP Subjective Start: 05/28/20 08:43 Freq: NEEDED Status: Active Protocol: Document 05/29/20 14:23 [place] (Rec: 05/29/20 16:37 KS [email or web address]) Subjective Physical Therapy Visit Type Type Treatment Note Visit Start Time 14:23 Visit Stop Time 15:06 Total Visit Minutes 43 Number of SOURCING ASSISTANT Visits 1 Physical Therapy Visit Comments Patient Comments Pt is agreeable to do PT. Therapy Pain Assessment Pain When Pain Assessed During Mobility Pain Present Pain Present Pain Reported Location Right Hip Intensity 2 Scale Used Numeric (0 - 10) Description Tightness Pain Behaviors Guarding Pain Management Techniques Elevation,Re-positioning, Timing of Activity with Medications M4 PT-IP Mobility and Gait Start: 05/28/20 08:43 Freq: NEEDED Status: Active Protocol: Document 05/29/20 14:23 [place] (Rec: 05/29/20 16:37 [place] [email or web address]) PT-Bed Mobility Assessment Scooting Scooting to Edge of Bed Contact Guard Assistance PT-Transfer Assessment Sit to and From Stand Sit to and from Stand Contact Guard Assistance, Minimal Assistance,1 Person Assistance,Use of Upper Extremities Equipment Transfer Assistive Device Gait Belt,Front Wheeled Walker Orthotic/Prosthetic Devices or Brace: No Transfers Transfer Destination Bed,Chair Transfer Technique pt ambulated w/ FWW Transfer Ability Level of Assist Minimal Assistance,1 Person Assistance,Use of Upper Extremities Comments Mobility Comments Pt in chair upon arrival from therapy. CGA for scooting to EOC. Min A for sit<>stand from chair. Pt then performed 20 seconds weight shifting followed by [address] She then completed stand step pivot transfer to bed w/ Min A and cues for FWW management. Pt then performed 5x sit<>stands from bed. Pt needed CGA for sit<>stand from slightly raised bed and Min A from lowered bed. Pt took ~8min to complete 5 STS. She then ambulated ~20 ft around room w / FWW and CGA. Pt ambulated slowly w/ step to gait and use of BUE on FWW to off weight RLE d/t pain. Pt returned to chair CGA w/ cues for hand placement and slow descent. Pt left in chair w/ all needs in reach. Gait Assessment Gait Gait Assistance Required: Contact Guard Assist,1 Person Assist Distance (Feet) 20 Able to Maintain Weight Bearing Status Yes During Gait Assistive Devices Assistive Device Front Wheeled Walker Orthotic/Prosthetic Devices or Brace: No Gait Deviations General Gait Pattern Antalgic,Decreased Stride Length,Decreased Feet Clearance,Flexed Trunk,Step-to Gait Factors Limiting Gait Function Factors Limiting Gait Function Decreased Activity Tolerance, Decreased Strength,Limited Range of Motion,Pain Comments Gait Comments Please refer to mobility section for details. Stair Climbing Assessment Comments Stair Climbing Comments Not assessed. PT-Balance Assessment Sitting Balance and Reactions Static Sitting Balance Ability Good Dynamic Sitting Balance Ability Fair Standing Balance and Reactions Static Standing Balance Ability Good Dynamic Standing Balance Ability Fair Device Used FWW Functional Assessments Other Functional Tests Performed 5 x sit<>stand w/ FWW, ~8 min. CGA from raised bed, Min A from low bed. M5 PT-IP Objective Assessments Start: 05/28/20 08:43 Freq: NEEDED Status: Active Protocol: Document 05/28/20 11:39 [place] (Rec: 05/28/20 13:04 [place] [id number]) Orientation Orientation/Cognition Level of Alertness Alert Orientation Name,Age,Birthday,Month,Date, Year,Day of Week,Place, Situation Language Function Ability No Deficits Noted Safety Awareness Understands Safety Issues Memory Description No Deficits Noted Gross Range of Motion Lower Extremity ROM Assessment Bilaterally Impaired Impairments Unable to test d/t pain. Strength Lower Extremity Strength Assessment Bilaterally Impaired Comments Strength Comments Unable to test d/t pain. Coordination Assessment Gross Coordination Gross Coordination WNL Sensation Assessment Sensation Gross Sensation WNL Light Touch Intact Muscle Tone Muscle Tone WNL Yes M6 PT-IP Treatment Start: 05/28/20 08:43 Freq: NEEDED Status: Active Protocol: Document 05/29/20 14:23 KS (Rec: 05/29/20 16:37 KS [email or web address]) Physical Therapy Treatment Education Education Provided Weight Bearing Status,Safety M7 PT-IP Assessment and Plan Start: 05/28/20 08:43 Freq: NEEDED Status: Active Protocol: Document 05/29/20 14:23 KS (Rec: 05/29/20 16:37 KS [email or web address]) PT Summary Assessment and Plan Potential Rehabilitation Potential Good Status of Condition at Evaluation Evolving Summary Impairments Pain,ROM,Strength,Balance,Bed Mobility,Transfers,Gait, Activity Tolerance Progress Towards Goals Slow Progress due to Pain,Slow Progress due to Activity Tolerance Assessment Summary Pt showed some improvement w/ tolerance for activity today and reported less pain w/ movement (2/10). CGA for scooting in chair, Min A for sit<>Stand from low surface, CGA for sit<>Stand from raised bed. Pt required cues for hand placement and sequencing during sit<>stand and FWW management during transfers. Pt completed 5x sit<>Stand w/ FWW and 20 ft ambulation w/ FWW. Pt is still limited by tolerance for activity and will benefit from SNF to improve strength and functional mobility. Goals Bed Mobility Goal Contact Guard Assistance Transfer Goal Contact Guard Assistance,Front Wheeled Walker Gait Goal Contact Guard Assistance,Front Wheel Walker Gait Distance 100 Other Goals Pt will perform 4 steps with L handrail ascending. Days to Meet Goals 10 Frequency of Treatment Frequency Of Treatment Twice a Day Treatment Plan Physical Therapy Treatment Plan Bed Mobility Training,Transfer Training,Gait Training, Therapeutic Exercise,Balance Retraining,Post Op Education, Discharge Planning Recommendations To Nursing Amount of Assist Needed 1 Person Assist Discharge Recommendations PT Discharge Recommendations SNF Rehab Equipment Needed for Home Before Deferred to rehab setting. Discharge Transportation Needs at Discharge Private Vehicle,Wheelchair/ Cabulance
[2020-05-29 15:34] VITALS: PULSE 95; RESP 16; TEMP 36.5; O2SAT 94
--- NOTE | 2020-05-29 19:10 | PC.NURSE ---
Patient has been sitting up in the chair most of the shift. Dressing to hip has been CDI. Pain has been controlled well with oxycodone. Patient has been A&O, calm and cooperative.
[2020-05-29 19:35] VITALS: BP 122/66; PULSE 86; RESP 16; TEMP 36.5; O2SAT 96
[2020-05-30] VITALS: BP 110/85; PULSE 93; RESP 16; TEMP 36.2; O2SAT 94
[2020-05-30] MEDS: OXYCODONE IR 10 MG TABLET PO (01:19)
[2020-05-30 05:33] LABS: Add Manual Diff / Slide Review NO; Basophils Absolute Auto 0 /uL (0-100); Basophils Percent Auto 0.2 % (0-2); Eosinophils Absolute Auto 200 /uL (0-450); Eosinophils Percent Auto 1.7 % (2-4); Hematocrit 31.4 % (36-46); Hemoglobin 10.6 g/dL (12.0-16.0); Lymphocytes Absolute Auto 2000 /uL (1100-4500); Lymphocytes Percent Auto 20.6 % (25-40); Mean Corpuscular HGB Conc 33.9 % (30-36); Mean Corpuscular Hemoglobin 35.9 PG (26-34); Mean Corpuscular Volume 105.8 fL (80-100); Monocytes Absolute Auto 1000 /uL (0-900); Monocytes Percent Auto 10.7 % (3-14); Neutrophils Absolute Auto 6400 /uL (1500-7000); Neutrophils Percent Auto 66.8 % (50-75); Platelet Count 180 X10^3/uL (150-400); Red Blood Cell Count 2.96 X10^6/uL (4.0-5.2); Red Cell Distribution Width 14.6 % (11.6-14.8); White Blood Cell Count 9.6 X10^3/uL (4.5-11.0)
[2020-05-30 05:44] LABS: BUN Creatinine Ratio 23.8 (6-22); Blood Urea Nitrogen 15 mg/dL (7-17); Calcium 9.1 mg/dL (8.4-10.2); Carbon Dioxide 37 mmol/L (22-32); Chloride 98 mmol/L (98-107); Estimated Glomerular Filt Rate > 60.0 mL/min (>60); Glucose 210 mg/dL (80-110); HEMOLYSIS < 15 (0-50); Magnesium 1.8 mg/dL (1.6-2.3); Potassium 4.5 mmol/L (3.4-5.1); Sodium 133 mmol/L (137-145)
[2020-05-30 05:47] VITALS: BP 137/69; PULSE 92; RESP 18; TEMP 36.2; O2SAT 93
[2020-05-30] MEDS: OXYCODONE IR 5 MG TABLET PO ×3 (06:28→13:25)
[2020-05-30 08:05] VITALS: BP 131/72; PULSE 95; RESP 15; TEMP 37; O2SAT 90
[2020-05-30] MEDS: ACETAMINOPHEN 325 MG TABLET 975 MG PO ×2 (09:34→13:24)
[2020-05-30] MEDS: DOCUSATE 100 MG CAPSULE PO (09:35)
[2020-05-30] MEDS: ASPIRIN EC 81 MG TABLET PO (09:35)
[2020-05-30] MEDS: NICOTINE 21 MG PATCH TOP (09:35)
[2020-05-30] MEDS: hydrOXYzine pamoate 25 MG CAPSULE PO (09:36)
[2020-05-30] MEDS: SODIUM CHLORIDE 0.9% FLUSH 10 ML IV (09:37)
--- NOTE | 2020-05-30 10:40 | P.PN_ITS ---
Subjective Subjective Date Patient Seen: 05/30/20 Time Patient Seen: 10:40 Interval history: Patient's pain is [id number]. Denies fever/ chills. No nausea /vomiting. Exam Vital Signs (past 8 hours): - 05/30/20 05:47 05/30/20 08:05 Temperature 97.2 F L 98.6 F Pulse Rate 92 H 95 H Respiratory Rate 18 15 Blood Pressure 137/69 131/72 Pulse Oximetry 93 90 L Oxygen Delivery Method Room Air Oxygen Flow Rate 0 Narrative Exam Narrative: 69-year-old female resting comfortably in bed in no apparent distress. Mild drainage on the upper dressing otherwise clean, dry and intact. Motor functions intact distal right lower extremity. Both legs are warm and dry. Sensation grossly intact to light touch bilateral lower extremities. Objective Labs Result Diagrams: 05/30/20 05:10 05/30/20 05:10 Labs: Laboratory Results - last 24 hr 05/30/20 05/30/20 05:10 05:10 WBC 9.6 RBC 2.96 L Hgb 10.6 L Hct 31.4 L MCV 105.8 H MCH 35.9 H MCHC 33.9 RDW 14.6 Plt Count 180 Neut % (Auto) 66.8 Lymph % (Auto) 20.6 L [place] % (Auto) 10.7 Eos % (Auto) 1.7 L Baso % (Auto) 0.2 Neut # (Auto) 6400 Lymph # (Auto) 2000 [place] # (Auto) 1000 H Eos # (Auto) 200 Baso # (Auto) 0 Sodium 133 L Potassium 4.5 Chloride 98 Carbon Dioxide 37 H BUN 15 Creatinine 0.63 Estimated GFR > 60.0 BUN/Creatinine Ratio 23.8 H Glucose 210 H Calcium 9.1 Magnesium 1.8 Assessment & Plan Post-op Postoperative Procedures: Procedures Operation Date: 05/27/20 16:00 Actual Procedures Side Surgeon p Intramedullary Nailing Femur Right Stanley Charlton MD Postop day 3 status post right short cephalomedullary nail for intertrochanteric femur fracture. Aspirin 81 mg b.i.d. for 6 weeks. She is weight-bearing as tolerated. Patient orthopedic least stable. She is being followed by Medicine for chronic tobacco abuse, severe protein calorie malnutrition. Physical t herapy has recommended snf facility placement. She will need to follow-up with [facility] in 2 weeks.
--- NOTE | 2020-05-30 10:58 | P.DS_ITS ---
History of Present Illness History of Present Illness Date Patient Seen: 05/30/20 Time Patient Seen: 10:45 Chief complaint: GLF, R Hip Pain Narrative: As per BORIS Mcintosh: Ms. Hailey Mora is a 69-year-old female who reports no significant medical history who presents to the ER following a fall from the ladder and right hip pain. The patient states she was getting off the ladder while she was painting her kitchen and fell to the floor landing on her right side. The patient has no recollection of the incident. She denies antecedent complaints of dizziness chest pain shortness of breath, numbness, tingling or weakness. The patient states she could not get up and was calling for help. She she reports laying on the floor for 12 hours being unable to move. The patient reports that she has not sought medical care for over 20 years. She denies recent cold or flu symptoms, has had no fevers or chills, nasal congestion or sore throat. She has had no known COVID-19 exposures. She denies complaints of chest pain or palpitations, shortness of breath cough or wheezing. She has had no abdominal pain common epigastric tenderness, nausea or vomiting. She endorses urinary urgency but denies frequency hematuria or burning. She states she has had no diarrhea or constipation. Since her fall she endorses midline low neck pain, profound right hip pain and describes right lower quadrant abdominal pain. Upon arrival to the ER the patient has a temperature of 98?, heart rate of 83, blood pressure 156/70, respirations 18 saturating 97% on room air. X-rays taken the right hip which finds a minimally displaced intertrochanteric fracture. Twelve lead EKG is obtained which finds sinus rhythm with an incomplete right bundle branch block and minimal left ventricular hypertrophy with ST elevation in V1 through V3. On laboratory analysis he has elevated white count at 12.9, hemoglobin of 12.4, hematocrit 37.4 and platelets of 213. Her electrolytes are within normal limits and she has a BUN 7 and creatinine 0.42. Her nonfasting glucose is 157. Total CK is 34. COVID-[address] Stanley Charlton is contacted through the emergency department and agrees to consult. He has evaluated the patient and will be taking the patient directives surgery. The patient is admitted to the medical service for further evaluation and monitoring. Discharge Providers Provider Date of admission: 05/27/20 13:39 Discharge Date: 05/30/20 Consults: 05/27/20 12:40 Consult to Orthopedic Surgery Stat Comment: Consulting Provider: Stanley Charlton Reason for consultation: hip fracture Has provider been notified: Yes 05/27/20 19:46 Consult to Discharge Planning Routine Comment: Consult to Physical Therapy Evaluate & Treat Comment: Physician Instructions: Evaluate and Treat Consult to Respiratory Therapy Evaluate & Treat Comment: Physician Instructions: Evaluate and treat 05/28/20 03:44 Consult to Dietitian, Adult Routine Comment: Reason For Exam: Severe malnutrition, BMI 14.9 with hip fracture 05/28/20 14:06 Consult to Occupational Therapy Evaluate & Treat Comment: Physician Instructions: Evaluate and treat 05/28/20 17:10 Consult to Occupational Therapy Evaluate & Treat Comment: Physician Instructions: Evaluate and treat Discharge provider: Jared Bates DO Summary Hospital Course Discharge Diagnosis: Please see hospital course by problem list noted below Hospital Course: This is a 69-year-old female who appears older than her stated age who has no significant medical history having had no medical care for 20 years. She was painting in her kitchen and descending ladder when she fell to the floor after a possible syncopal episode and complaining of neck pain and hip pain. She was admitted for right closed intertrochanteric femur fracture for which she underwent operative interventions on May 27. She had an unremarkable postoperative course and was discharged to rehab for continued therapy on May 30. 1. Ground level fall, loss of consciousness unclear if before or is a result of the fall, acute, active -the patient sustained a fall from an unknown height sustaining a loss of consciousness. She also had immediate right hip pain and was immobile on the floor for 12 hours. -the patient complained of midline low cervical spine pain possibly not notice due to distracting injury. C-spine x-rays did not show definitive fracture and her pain has improved. Did not further evaluate with CT imaging. -the patient does not recall events of fall however she denies any antecedent symptoms. -patient's 12 lead shows a sinus rhythm with an incomplete left bundle branch block and minimal left ventricular hypertrophy with ST abnormalities in V1 through V3. Echocardiogram performed for possible sycnopal episode shows evidence of diastolic dysfunction with pseudonormalization pattern but a normal EF and no significant valvular pathologies. She remains asymptomatic without chest pain or shortness of breath. No events on telemetry. Her lipid panel is unremarkable, as was her TSH and A1c values. 2. Right closed intertrochanteric femur fracture, acute, present on admission, active -Patient sustained a fall from ladder onto her right hip sustaining intertrochanteric fracture. No prior diagnosis of osteoporosis or mention on imaging, unable to determine if pathologic or traumatic as fall height was not known given she fell off of a ladder. -Dr. Charlton performed operative interventions on 05/27/20. -follow up with orthopedics as an outpatient. 3. Tobacco Abuse, chronic -patient reports smoking for over 50 years and is currently smoking a pack and half a day since the onset of COVID 19 and isolation. -counseled patient on smoking cessation, patient is interested in quitting -continue Nicoderm patch. 4. Severe protein calorie malnutrition, chronic -patient is frail appearing with decreased muscle mass and has a BMI of 14.9. -patient will likely have poor healing of tissues due to nutritional status, delayed rehab due to loss of muscle mass -appreciate dietary consultation VTE prophylaxis: Per the surgical team aspirin 81 mg twice daily Diet: Regular diet Code status: Patient states her wish to be DNR DNI, she declines to designate surrogate decision maker however Kristina Robles is listed is her emergency contact. Dispo: Discharge to [facility] facility Time Spent with Patient Time spent: Greater than 30 minutes Exam Vital Signs (past 8 hours): - 05/30/20 05:47 05/30/20 08:05 Temperature 97.2 F L 98.6 F Pulse Rate 92 H 95 H Respiratory Rate 18 15 Blood Pressure 137/69 131/72 Pulse Oximetry 93 90 L Oxygen Delivery Method Room Air Oxygen Flow Rate 0 Narrative Exam Narrative: ENERAL APPEARANCE: well developed, frail appearing malnourished oddly female lying semi recumbent in bed. HEENT: Atraumatic, PERRLA, conjunctiva clear sclera anicteric,, EOMs intact without nystagmus, no rhinorrhea, mucous membranes are moist and pink without lesions or exudate. NECK/THYROID: Neck pain on palpation low cervical spine midline, decreased ROM, no carotid bruit, no thyromegaly, trachea midline. LYMPH NODES: no cervical or supraclavicular lymphadenopathy. SKIN: Pallor, warm and dry, no visible lesions, rashes, ulcerations or petechiae. HEART: regular rate and rhythm, S1-S2, no murmur, no rubs or gallops, brisk capillary refill, no edema LUNGS: Diminished breath sounds bibasilar, no coarseness crackles or wheezing, no cough present CHEST: Symmetrical movement, no accessory muscle use, good tidal volume no pain to AP and lateral compression. ABDOMEN: Soft, no distention, pain on palpation right lower abdominal wall and pubic synthesis, no guarding or peritoneal signs, no organomegaly, active bowel tones. BACK: Nontender to palpation EXTREMITIES: distal CMS intact, BUE strength is 5/5 and symmetrical without deformity or joint effusions. NEUROLOGIC: AAO x 3, no focal neurologic deficits, cranial nerves II-XII grossly intact, sensation intact to light touch, hearing grossly normal to speech. PSYCH: Patient with flat affect, short response to questions, cooperative Objective Labs Result Diagrams: 05/30/20 05:10 05/30/20 05:10 Labs: Laboratory Results - last 24 hr 05/30/20 05/30/20 05:10 05:10 WBC 9.6 RBC 2.96 L Hgb 10.6 L Hct 31.4 L MCV 105.8 H MCH 35.9 H MCHC 33.9 RDW 14.6 Plt Count 180 Neut % (Auto) 66.8 Lymph % (Auto) 20.6 L [place] % (Auto) 10.7 Eos % (Auto) 1.7 L Baso % (Auto) 0.2 Neut # (Auto) 6400 Lymph # (Auto) 2000 [place] # (Auto) 1000 H Eos # (Auto) 200 Baso # (Auto) 0 Sodium 133 L Potassium 4.5 Chloride 98 Carbon Dioxide 37 H BUN 15 Creatinine 0.63 Estimated GFR > 60.0 BUN/Creatinine Ratio 23.8 H Glucose 210 H Calcium 9.1 Magnesium 1.8 Discharge Plan Discharge Plan Patient Disposition: SNF Transfer to: [facility] Provider Discharge Comment: 69 y/o F with PMH of tobacco use presented after falling after a ladder with a hip fracture. Repaired on 05/27 and stable for discharge. Recovery period was uncomplicated. Left bundle branch block on EKG but reportedly chronic per patient. Echocardiogram was unremarkable. Recommend patient to establish care at some point with a PCP. Transfer to [facility] for continued rehab after surgery. Patient lives alone. Follow up with orthopedic surgery as an outpatient. Discharge orders & Medications Prescriptions: New acetaminophen 325 mg Tablet 975 mg PO TID 30 Days Qty: 270 RF: 0 aspirin 81 mg Tablet,Delayed Release (Dr/Ec) 81 mg PO BID 40 Days Qty: 80 RF: 0 calcium carbonate 200 mg calcium (500 mg) Tablet,Chewable 1,000 mg PO Q4HR PRN (Reason: Dyspepsia) 10 Days Qty: 20 RF: 0 docusate sodium [DOK] 100 mg Capsule 100 mg PO BID 14 Days Qty: 28 RF: 0 nicotine 21 mg/24 hr Patch 24 Hour 21 mg topical DAILY 14 Days Qty: 14 RF: 0 alum-mag hydroxide-simeth [Mag-Al Plus] 200-200-20 mg/5 mL Suspension 30 ml PO Q6HR PRN (Reason: Dyspepsia) 14 Days Qty: 300 RF: 0 ondansetron 4 mg Tablet,Disintegrating 4 mg PO Q4HR PRN (Reason: Nausea And Vomiting) 7 Days Qty: 30 RF: 0 hydroxyzine pamoate 25 mg Capsule 25 mg PO Q4HR PRN (Reason: Muscle Spasm) 14 Days Qty: 30 RF: 0 oxycodone 5 mg Tablet 5 - 10 mg PO Q4HR PRN (Reason: pain) 7 Days Qty: 40 RF: 0 Follow up/Referrals: Stanley Charlton MD [Physician] - ([facility] TO CALL DR. CHARLTON'S OFFICE TO SCHEDULE A HOSPITAL POST-OP APPOINTMENT TO BE SEEN IN 7-10 DAYS.) Discharge Health Status Precautions: [place] Diet/Activity/Treatments Diet: Diet as Tolerated Activity: As tolerated Visit Report/Discharge Packet Instructions: DI for Hip Fracture, How to Prevent Falls, DI for Prescription Opioid Use Discharges patient from system. Discharge Date/Time: 05/30/20 14:15
[2020-05-30 11:35] VITALS: BP 130/70; PULSE 94; RESP 15; TEMP 36.6; O2SAT 92
--- NOTE | 2020-05-30 11:40 | PT.IPTN ---
Current Diagnoses Displaced intertrochanteric fracture of right femur, initial encounter for closed fracture (05/27/20) Surgery Performed Operation Date: 05/27/20 16:00 Actual Procedures p Intramedullary Nailing Femur(Right) - Stanley Charlton MD Physical Therapy Treatment Note M2 PT-IP Current Condition Start: 05/28/20 08:43 Freq: NEEDED Status: Active Protocol: Document 05/28/20 11:39 DE (Rec: 05/28/20 13:04 DE [id number]) Physical Therapy Current Condition Current Condition Evaluation Date 05/28/20 Treatment Diagnosis GLF, R intertrochanteric femur fracture; Difficulty with walking Onset Date 05/27/20 Weight Bearing Status Weight Bearing Status Weight Bear as Tolerated M3 PT-IP Subjective Start: 05/28/20 08:43 Freq: NEEDED Status: Active Protocol: Document 05/30/20 11:00 KS (Rec: 05/30/20 15:49 KS [id number]) Subjective Physical Therapy Visit Type Type Treatment Note Visit Start Time 11:00 Visit Stop Time 11:40 Total Visit Minutes 40 Number of QUARRY PLUG AND FEATHER DRILLER Visits 2 Physical Therapy Visit Comments Patient Comments Pt is agreeable to do PT. Therapy Pain Assessment Pain When Pain Assessed During Mobility Pain Present Pain Present Pain Reported Location Right Hip Intensity 3 Scale Used Numeric (0 - 10) Description Tightness Pain Behaviors Guarding Pain Management Techniques Elevation,Re-positioning, Timing of Activity with Medications M4 PT-IP Mobility and Gait Start: 05/28/20 08:43 Freq: NEEDED Status: Active Protocol: Document 05/30/20 11:00 KS (Rec: 05/30/20 15:49 KS [id number]) PT-Bed Mobility Assessment Supine to Sit Supine to Sit Moderate Assistance,1 Person Assistance Scooting Scooting to Edge of Bed Contact Guard Assistance PT-Transfer Assessment Sit to and From Stand Sit to and from Stand Contact Guard Assistance,1 Person Assistance,Use of Upper Extremities Equipment Transfer Assistive Device Gait Belt,Front Wheeled Walker Orthotic/Prosthetic Devices or Brace: No Transfers Transfer Destination Bed,Chair Transfer Technique pt ambulated w/ FWW Transfer Ability Level of Assist Moderate Assistance,1 Person Assistance,Use of Upper Extremities Comments Mobility Comments Pt in bed upon arrival from therapy. Instructed pt how to use gait belt for self assist of RLE out of bed. Mod A and cues for sup<>sit for trunk support w/ HOB elevated, CGA for scooting to EOB. Pt CGA and cues for hand placement for sit<>stand w/ FWW. Pt performed 5x sit<>stand w/ FWW and CGA, she then ambulated ~ 40 [address] in hallway w/ FWW and CGA cues for equal step length , heel toe walking, and FWW management. Pt ambulated slowly and cautiously w/ mostly step to gait, but gait improved w/ cues and distance. Pt returned to room and chair and left in chair w/ LE elevated and all needs in reach. Gait Assessment Gait Gait Assistance Required: Contact Guard Assist,1 Person Assist Distance (Feet) 40 Able to Maintain Weight Bearing Status Yes During Gait Assistive Devices Assistive Device Front Wheeled Walker Orthotic/Prosthetic Devices or Brace: No Gait Deviations General Gait Pattern Antalgic,Decreased Stride Length,Decreased Feet Clearance,Flexed Trunk,Step-to Gait Factors Limiting Gait Function Factors Limiting Gait Function Decreased Activity Tolerance, Decreased Strength,Limited Range of Motion,Pain Comments Gait Comments Please refer to mobility section for details. Stair Climbing Assessment Comments Stair Climbing Comments Not assessed. PT-Balance Assessment Sitting Balance and Reactions Static Sitting Balance Ability Good Dynamic Sitting Balance Ability Fair Standing Balance and Reactions Static Standing Balance Ability Good Dynamic Standing Balance Ability Fair Device Used FWW Functional Assessments Other Functional Tests Performed 5 x sit<>stand w/ FWW, ~4 min. CGA . M5 PT-IP Objective Assessments Start: 05/28/20 08:43 Freq: NEEDED Status: Active Protocol: Document 05/28/20 11:39 DE (Rec: 05/28/20 13:04 DE [id number]) Orientation Orientation/Cognition Level of Alertness Alert Orientation Name,Age,Birthday,Month,Date, Year,Day of Week,Place, Situation Language Function Ability No Deficits Noted Safety Awareness Understands Safety Issues Memory Description No Deficits Noted Gross Range of Motion Lower Extremity ROM Assessment Bilaterally Impaired Impairments Unable to test d/t pain. Strength Lower Extremity Strength Assessment Bilaterally Impaired Comments Strength Comments Unable to test d/t pain. Coordination Assessment Gross Coordination Gross Coordination WNL Sensation Assessment Sensation Gross Sensation WNL Light Touch Intact Muscle Tone Muscle Tone WNL Yes M6 PT-IP Treatment Start: 05/28/20 08:43 Freq: NEEDED Status: Active Protocol: Document 05/30/20 11:00 KS (Rec: 05/30/20 15:49 KS [id number]) Physical Therapy Treatment Education Education Provided Weight Bearing Status,Safety M7 PT-IP Assessment and Plan Start: 05/28/20 08:43 Freq: NEEDED Status: Active Protocol: Document 05/30/20 11:00 KS (Rec: 05/30/20 15:49 KS [id number]) PT Summary Assessment and Plan Potential Rehabilitation Potential Good Status of Condition at Evaluation Evolving Summary Impairments Pain,ROM,Strength,Balance,Bed Mobility,Transfers,Gait, Activity Tolerance Progress Towards Goals Slow Progress due to Pain,Slow Progress due to Activity Tolerance Assessment Summary Pt able to increase gait distance to ~40 ft w/ FWW and CGA. She also completed 5x sit <>forensic medical examiner less time than previous tx. Mod A and cues for bed mobility. Pt will benefit from SNF to improve functional mobility and independence. Goals Bed Mobility Goal Contact Guard Assistance Transfer Goal Contact Guard Assistance,Front Wheeled Walker Gait Goal Contact Guard Assistance,Front Wheel Walker Gait Distance 100 Other Goals Pt will perform 4 steps with L handrail ascending. Days to Meet Goals 10 Frequency of Treatment Frequency Of Treatment Twice a Day Treatment Plan Physical Therapy Treatment Plan Bed Mobility Training,Transfer Training,Gait Training, Therapeutic Exercise,Balance Retraining,Post Op Education, Discharge Planning Recommendations To Nursing Amount of Assist Needed 1 Person Assist Discharge Recommendations PT Discharge Recommendations SNF Rehab Equipment Needed for Home Before Deferred to rehab setting. Discharge Transportation Needs at Discharge Private Vehicle,Wheelchair/ Cabulance
--- NOTE | 2020-05-30 12:12 | CM.DPNOTE ---
DC Note DC order in place and patient remains agreeable to [facility]. Faxed completed and signed DC ppk, med list and completed PASRR to [facility]. Discussed DC w/December at [facility] and transport was arranged for 1330 p/u, no updated COVID required. Updated RN Mallorie and RN Coordinator Berenice w/above P: DC to [facility] via w/c today JW
== END 2020-05-30 14:15 | DRG 480 ==
LOC: ED 13:34 → AC 13:40
PROVIDERS: Nurse Practitioner Adult Health; Orthopaedic Surgery Adult Reconstructive Orthopaedic Surgery; Admitting Provider Internal Medicine; Emergency Provider Emergency Medicine; Referring Provider Emergency Medicine; Visit Provider Internal Medicine
PROC: 0QS606Z Reposition Right Upper Femur with Intramedullary Internal Fixation Device, Open Approach (ICD-10-PCS; CPT 27245; principal; 2020-05-27 16:00)
DX: S72.141A Displaced intertrochanteric fracture of right femur, initial encounter for closed fracture (principal); E43 Unspecified severe protein-calorie malnutrition; Z68.1 Body mass index [BMI] 19.9 or less, adult; F17.210 Nicotine dependence, cigarettes, uncomplicated; R55 Syncope and collapse; I44.7 Left bundle-branch block, unspecified; M62.838 Other muscle spasm; Z11.59 Encounter for screening for other viral diseases; W19.XXXA Unspecified fall, initial encounter
CPT/HCPCS: 36415; 51701; 72040; 72170; 73502; 76000; 80048; 80061; 82550; 83735; 85014; 85018; 85025; 87635; 93005; 93306; 94760; 94762; 97116; 97162; 97167; 97530; 97535; 99284; 99406; J0690; J1170; J2270; J2405; J2704; J3010

== ENCOUNTER → 2020-06-05 14:29 | Outpatient (CLI) | payer SELFPAY ==
[2020-05-27 19:48] VITALS: BMI 14.8
--- NOTE | 2020-06-05 | DI.RAD.S_ITS ---
PROCEDURE: XR KNEE RT 3V INDICATIONS: RULE OUT ABNORMALITIES OF RIGHT KNEE, SWELLING TECHNIQUE: 3 views of the knee were acquired. COMPARISON: None. FINDINGS: Bones: No fractures or dislocations. No suspicious bony lesions. Soft tissues: No joint effusion. No suspicious soft tissue calcifications. IMPRESSION: No trauma found. Dictated by: Wayne Arnold M.D. on 06/05/2020 at 15:47 Approved by: Wayne Arnold M.D. on 06/05/2020 at 15:47
== END ==
PROVIDERS: Referring Provider Nurse Practitioner; Visit Provider Nurse Practitioner
DX: M25.461 Effusion, right knee (principal)
CPT/HCPCS: 73562

== ENCOUNTER → 2020-09-30 15:30 | Outpatient (CLI) | payer MEDICARE, SELFPAY ==
[2020-05-27 19:48] VITALS: BMI 14.8
[2020-09-30] MEDS: COVID-19 VACC, Ad26(JANSSEN)/PF 0.5 ML IM (15:50)
== END ==
PROVIDERS: PCP Registered Nurse; Visit Provider Internal Medicine
DX: Z23 Encounter for immunization (principal)
CPT/HCPCS: 0031A; 91303

== ENCOUNTER → 2021-06-24 13:31 | Outpatient (CLI) | payer OTHER, SELFPAY ==
[2020-05-27 19:48] VITALS: BMI 14.8
--- NOTE | 2021-06-24 13:36 | DI.RAD.S_ITS ---
PROCEDURE: XR DEXA AXIAL SKELETON INDICATIONS: post menopausal COMPARISON: None. FINDINGS: This blank DEXA report has been sent in error by the PACS system. The correct and complete report will be forthcoming in 1-2 days. Thank you for your patience and understanding. Dictated by: Darlin Connors MD, PhD on 06/24/2021 at 17:16 Approved by: Darlin Connors MD, PhD on 06/24/2021 at 17:17
[2021-06-24 14:39] LABS: Add Manual Diff / Slide Review NO; Basophils Absolute Auto 0 /uL (0-100); Basophils Percent Auto 0.5 % (0-2); Eosinophils Absolute Auto 200 /uL (0-450); Eosinophils Percent Auto 1.9 % (2-4); Hematocrit 43.5 % (36-46); Hemoglobin 14.6 g/dL (12.0-16.0); Lymphocytes Absolute Auto 2000 /uL (1100-4500); Mean Corpuscular HGB Conc 33.6 % (30-36); Mean Corpuscular Volume 104.1 fL (80-100); Monocytes Absolute Auto 700 /uL (0-900); Monocytes Percent Auto 8.4 % (3-14); Neutrophils Absolute Auto 5700 /uL (1500-7000); Neutrophils Percent Auto 66.2 % (50-75); Platelet Count 230 X10^3/uL (150-400); Red Blood Cell Count 4.18 X10^6/uL (4.0-5.2); Red Cell Distribution Width 13.8 % (11.6-14.8); White Blood Cell Count 8.6 X10^3/uL (4.5-11.0)
[2021-06-24 14:55] LABS: Alanine Aminotransferase 15 IU/L (<35); Albumin 4.2 g/dL (3.5-5.0); Albumin Globulin Ratio 1.6 (1.0-2.8); Alkaline Phosphatase 209 U/L (38-126); Aspartate Aminotransferase 26 IU/L (14-36); BUN Creatinine Ratio 15.8 (6-22); Bilirubin Total 0.5 mg/dL (0.2-1.3); Blood Urea Nitrogen 9 mg/dL (7-17); Calcium 9.5 mg/dL (8.4-10.2); Carbon Dioxide 25 mmol/L (22-32); Chloride 105 mmol/L (98-107); Estimated Glomerular Filt Rate > 60.0 mL/min (>60); Globulin 2.6 g/dL (1.7-4.1); Glucose 147 mg/dL (80-110); HEMOLYSIS < 15 (0-50); Potassium 4.6 mmol/L (3.4-5.1); Sodium 136 mmol/L (137-145); Total Protein 6.8 g/dL (6.3-8.2)
[2021-06-24 17:12] LABS: Hemoglobin A1C% w Est Avg Glu 6.5 % (4.0-6.0)
== END ==
PROVIDERS: Student in an Organized Health Care Education/Training Program; PCP Registered Nurse; Referring Provider Registered Nurse; Visit Provider Registered Nurse
DX: M81.0 Age-related osteoporosis without current pathological fracture (principal); Z78.0 Asymptomatic menopausal state; D64.9 Anemia, unspecified; R73.09 Other abnormal glucose; Z72.0 Tobacco use
CPT/HCPCS: 36415; 77080; 80053; 83036; 85025

== ENCOUNTER → 2021-06-30 13:24 | Outpatient (CLI) | payer OTHER, SELFPAY ==
[2020-05-27 19:48] VITALS: BMI 14.8
[2021-07-01 10:41] LABS: Fecal Immunochemical Test Negative (Negative)
== END ==
PROVIDERS: PCP Registered Nurse; Referring Provider Registered Nurse; Visit Provider Registered Nurse
DX: D64.9 Anemia, unspecified (principal); Z12.11 Encounter for screening for malignant neoplasm of colon
CPT/HCPCS: 82274

== ENCOUNTER → 2021-08-17 12:36 | Outpatient (CLI) | payer OTHER, SELFPAY ==
[2020-05-27 19:48] VITALS: BMI 14.8
[2021-08-17 13:02] LABS: COVID19 -Nasal RAPID Negative (Negative)
== END ==
PROVIDERS: PCP Registered Nurse; Referring Provider Nurse Practitioner Critical Care Medicine; Visit Provider Nurse Practitioner Critical Care Medicine
DX: Z20.822 Contact with and (suspected) exposure to COVID-19 (principal); J02.9 Acute pharyngitis, unspecified; R05.9 Cough, unspecified
CPT/HCPCS: 87635

== ENCOUNTER 2021-12-09 21:29 | Emergency (ER) | payer OTHER, SELFPAY ==
[2020-05-27 19:48] VITALS: BMI 14.8
[2021-12-09 21:35] VITALS: BP 164/77; PULSE 90; O2SAT 97
[2021-12-09 21:37] VITALS: BP 164/77; PULSE 103; RESP 20; TEMP 36.8; O2SAT 96; BMI 17.9
--- NOTE | 2021-12-09 21:39 | PC.NURSE ---
Pt BIBA for eval of shortness of breath and anxiety. Pt was noticed to be breathing hard by a neighbor while pt was walking and EMS was contacted. Pt reports she is anxious because her son is in the hospital and she is unable to go see him. Pt tearful and tachycardic upon arrival. Pt appears intoxicated, reports drinking multiple glasses of wine per day, last intake 1999 tonight. EKG from EMS showed left heart strain. EKG obtained upon pt arrival by RT.
--- NOTE | 2021-12-09 21:44 | DI.RAD.S_ITS ---
PROCEDURE: XR CHEST 2V INDICATIONS: shortness of breath TECHNIQUE: 2 views of the chest were acquired. COMPARISON: None. FINDINGS: Surgical changes and devices: None. Lungs and pleura: Lungs are clear. There is hyperinflation of the lungs with mild flattening of the hemidiaphragms compatible with COPD. No pleural effusions or pneumothorax. Mediastinum: Mediastinal contours are normal. Heart size is normal. Bones and chest wall: No suspicious bony abnormalities. There are bilateral peripherally calcified breast implants. IMPRESSION: 1. Findings compatible with COPD. Dictated by: Jan Chavez M.D. on 12/09/2021 at 22:33 Approved by: Jan Chavez M.D. on 12/09/2021 at 22:34
--- NOTE | 2021-12-09 21:51 | ED.SOB ---
HPI - SOB/Dyspnea General Chief Complaint: Shortness of Breath/Dyspnea Stated Complaint: SOB panic attack Time Seen by Provider: 12/09/21 21:41 Source: EMS Mode of arrival: EMS Limitations: other Related Data Previous Rx's Medication Instructions Recorded parking permit #1 ea 06/21/20 trazodone 50 mg tablet 25 mg PO BEDTIME PRN #30 tab 06/16/21 Ensure #1 ea 07/03/21 risedronate 35 mg tablet (Actonel) 35 mg PO QWEEK #12 tab 07/28/21 Allergies Allergy/AdvReac Type Severity Reaction Status Date / Time No Known Drug Allergies Allergy Verified 08/17/21 12:45 Patient History Medical History (Updated 08/11/21 @ 14:53 by Travon Higuera DO) Current every day smoker Healthy adult Hyperglycemia Hypertension Unsteady gait Surgical History History of bilateral breast implants History of cholecystectomy History of hysterectomy Family History Father Congestive heart failure Mother No significant medical problems Brother Heart disease Diabetes mellitus Sister Cancer Social History household members: none lives independently: Yes Smoking Status: Current every day smoker alcohol intake: current Smoking Status: Current every day smoker tobacco type: cigarettes alcohol intake frequency: 3 or more drinks per day Alcohol type: wine Substance Use Type: does not use Exam Initial Vital Signs Initial Vital Signs: Vital Signs Temperature 98.3 F 12/09/21 21:37 Pulse Rate 103 H 12/09/21 21:37 Respiratory Rate 20 12/09/21 21:37 Blood Pressure 164/77 H 12/09/21 21:37 Pulse Oximetry 96 12/09/21 21:37 Course Orders Ordered: ED Orders 12/09/21 21:30 Complete Blood Count AUTO DIFF Stat Comprehensive Metabolic Panel Stat Lactate (Lactic Acid) Stat cardiac panel [Troponin & CK Cardiac Panel] Stat 12/09/21 21:44 XR chest 2V Stat EKG-12 Lead Stat Measure peak expiratory flow ONCE RT Consult Eval and Treat Now Vital Signs Vital signs: Vital Signs - 8 hr 12/09/21 21:37 Temperature 98.3 F Pulse Rate 103 H Respiratory Rate 20 Blood Pressure 164/77 H Pulse Oximetry 96 MDM - SOB/Dyspnea Lab Data Result diagrams: 12/09/21 21:30 12/09/21 21:30 Discharge Plan Departure Prescriptions: No Action (DME) Ensure See Rx Instructions .Route .MEDSUPPLY Qty: 1 0RF Rx Instructions: As directed (DME) parking permit See Rx Instructions .Route .MEDSUPPLY Qty: 1 0RF Rx Instructions: As directed trazodone 50 mg tablet 25 mg PO BEDTIME PRN (Reason: insomnia) Qty: 30 3RF risedronate [Actonel] 35 mg tablet 35 mg PO QWEEK Qty: 12 3RF Rx Instructions: administer at least 30 minutes before the first food or drink of the day other than water. COVID-19 vacc,mRNA(Moderna)-PF 100 mcg/0.5 mL suspension 0.25 ml IM ONCE Qty: 0.25 0RF Referrals: Verito Braun ARNP [Primary Care Provider] -
[2021-12-09 21:54] LABS: Lactate (Lactic Acid) 1.6 mmol/L (0.7-2.1)
[2021-12-09 21:55] LABS: Alanine Aminotransferase 23 IU/L (<35); Alkaline Phosphatase 169 U/L (38-126); Aspartate Aminotransferase 46 IU/L (14-36); Bilirubin Total 0.5 mg/dL (0.2-1.3); Blood Urea Nitrogen 9 mg/dL (7-17); Calcium 9.2 mg/dL (8.4-10.2); Carbon Dioxide 27 mmol/L (22-32); Chloride 102 mmol/L (98-107); Estimated Glomerular Filt Rate > 60 mL/min (>60); Globulin 3.5 g/dL (1.7-4.1); Glucose 174 mg/dL (80-110); Potassium 5.3 mmol/L (3.4-5.1); Sodium 141 mmol/L (137-145); Total Protein 8.5 g/dL (6.3-8.2)
[2021-12-09 21:56] LABS: Albumin Globulin Ratio 1.4 (1.0-2.8); HEMOLYSIS 25 (0-50)
[2021-12-09 22:02] LABS: Add Manual Diff / Slide Review NO; Basophils Absolute Auto 0 /uL (0-100); Basophils Percent Auto 0.4 % (0-2); Eosinophils Absolute Auto 100 /uL (0-450); Eosinophils Percent Auto 1.1 % (2-4); Hematocrit 48.6 % (36-46); Hemoglobin 16.4 g/dL (12.0-16.0); Lymphocytes Absolute Auto 3600 /uL (1100-4500); Lymphocytes Percent Auto 45.2 % (25-40); Mean Corpuscular HGB Conc 33.7 % (30-36); Mean Corpuscular Hemoglobin 33.7 PG (26-34); Monocytes Absolute Auto 700 /uL (0-900); Monocytes Percent Auto 8.9 % (3-14); Neutrophils Absolute Auto 3500 /uL (1500-7000); Neutrophils Percent Auto 44.4 % (50-75); Platelet Count 271 X10^3/uL (150-400); Red Blood Cell Count 4.86 X10^6/uL (4.0-5.2); Red Cell Distribution Width 13.8 % (11.6-14.8); White Blood Cell Count 7.8 X10^3/uL (4.5-11.0)
[2021-12-09 22:04] LABS: Creatine Kinase 32 U/L (30-135)
[2021-12-09 22:17] LABS: Troponin I < 0.012 ng/mL (0.01-0.034)
[2021-12-09 23:00] VITALS: BP 155/70; PULSE 89; RESP 20; O2SAT 99
== END 2021-12-09 22:09 | disposition left against medical advice (07) ==
PROVIDERS: Emergency Provider Emergency Medicine; PCP Registered Nurse
DX: R00.0 Tachycardia, unspecified (principal); R06.02 Shortness of breath
CPT/HCPCS: 71046; 80053; 82550; 83605; 84484; 85025; 93005; 99283

== ENCOUNTER 2021-12-10 15:09 | Emergency (ER) | payer OTHER, SELFPAY ==
[2020-05-27 19:48] VITALS: BMI 14.8
[2021-12-10 15:15] VITALS: BP 123/66; PULSE 98; RESP 16; TEMP 36.5; O2SAT 96
[2021-12-10 15:30] VITALS: PULSE 102
[2021-12-10 15:32] VITALS: BP 136/78; PULSE 93; RESP 15; O2SAT 96
--- NOTE | 2021-12-10 15:32 | DI.CT.S_ITS ---
PROCEDURE: CT HEAD/BRAIN WO CON INDICATIONS: Altered LOC TECHNIQUE: Noncontrast 4.5 mm thick angled axial sections acquired from the foramen magnum to the vertex, with coronal and sagittal reformats. For radiation dose reduction, the following was used: automated exposure control, adjustment of mA and/or kV according to patient size. COMPARISON: None. FINDINGS: Image quality: Excellent. CSF spaces: Basal cisterns are patent. No extra-axial fluid collections. Ventricles are normal in size and shape. Brain: No midline shift. No intracranial masses or hemorrhage. River-white matter interface is normal. Skull and face: Calvarium and visualized facial bones are intact, without suspicious lesions. Sinuses: Visualized sinuses and mastoids are clear. IMPRESSION: No acute intracranial abnormality. Dictated by: Stephanie Stern M.D. on 12/10/2021 at 15:44 Approved by: Stephanie Stern M.D. on 12/10/2021 at 15:45
--- NOTE | 2021-12-10 15:33 | ED_ITS ---
HPI - Neuro Symptoms/Deficit General Chief Complaint: Neuro Symptoms/Deficit Stated Complaint: Can't understand things, coughing, here yesterday Time Seen by Provider: 12/10/21 15:23 Source: patient and other Mode of arrival: Wheelchair Limitations: no limitations History of Present Illness HPI Narrative: The patient presents with expressive aphasia. She is stumbling with her conversation. She is slow, but correctly answers orientation questions. She was intoxicated when she presented yesterday, she left without being seen. She appears to be intoxicated still. She has not passed out. She has no chest pain or palpitations. She has no head or neck injury. She has no abdominal discomfort, no nausea vomiting. She has right hip pain. She had right hip surgery about 1.5 years ago. She presents now with ongoing, severe right hip pain. On Anticoagulants: No Related Data Previous Rx's Medication Instructions Recorded parking permit #1 ea 06/21/20 trazodone 50 mg tablet 25 mg PO BEDTIME PRN #30 tab 06/16/21 Ensure #1 ea 07/03/21 risedronate 35 mg tablet (Actonel) 35 mg PO QWEEK #12 tab 07/28/21 Allergies Allergy/AdvReac Type Severity Reaction Status Date / Time No Known Drug Allergies Allergy Verified 08/17/21 12:45 Review of Systems Constitutional Constitutional: Denies body ache(s), Denies chills, Reports fatigue, Denies fever(s) and Denies headache(s) Eyes Eyes: Denies change in vision ENT Ears, Nose, Mouth, and Throat: Denies change in voice, Denies dizziness, Denies dry mouth and Denies headache(s) Cardiovascular Cardiovascular: Denies chest pain, Denies syncope, Denies rapid heart rate and Denies dyspnea Respiratory Respiratory: Denies cough and Denies dyspnea Gastrointestinal Gastrointestinal: Denies abdominal pain and Denies nausea Genitourinary Genitourinary: Denies dysuria Musculoskeletal Musculoskeletal: Reports myalgias and Reports arthralgias (Right hip pain) Integumentary/Breasts Skin/Breast: Denies lesions and Denies rash Neurologic Neurologic: Reports confusion, Denies dizziness, Denies syncope and Denies he adache(s) Comments: Slow speech. Confusion. Psychiatric Psychiatric: Reports confusion Endocrine Endocrine: Reports fatigue Hematologic/Lymphatic On Anticoagulants: No Patient History Medical History Current every day smoker Healthy adult Hyperglycemia Hypertension Unsteady gait Surgical History History of bilateral breast implants History of cholecystectomy History of hysterectomy Family History Father Congestive heart failure Mother No significant medical problems Brother Heart disease Diabetes mellitus Sister Cancer Social History household members: none lives independently: Yes Smoking Status: Current every day smoker alcohol intake: current Smoking Status: Current every day smoker tobacco type: cigarettes alcohol intake frequency: 3 or more drinks per day Alcohol type: wine Substance Use Type: does not use Exam Initial Vital Signs Initial Vital Signs: Vital Signs Temperature 97.7 F 12/10/21 15:15 Pulse Rate 98 H 12/10/21 15:15 Respiratory Rate 16 12/10/21 15:15 Blood Pressure 123/66 12/10/21 15:15 Pulse Oximetry 96 12/10/21 15:15 Const General: cooperative, disheveled, intoxicated appearing and other (Smells of alcohol.) HENGA Head: normal to inspection, normocephalic and atraumatic Face and sinus: normal facial exam Mouth: oral mucosae normal Eyes General: Yes appearance normal, both eyes and all related structures Conjunctivae: conjunctivae normal Pupils: PERRL and pupil size EOM: EOM intact bilaterally and nystagmus (Bilateral) Neck Neck: full ROM and No tender Resp Auscultation: clear to auscultation bilaterally Cardio Rate: regular rate Rhythm: regular rhythm Heart Sounds: S1 normal, S2 normal, no murmurs and no rubs GI Inspection: normal to inspection Palpation: soft, No guarding, No mass and No tender Back/Spine/Pelvis Back: normal to inspection and No CVA tenderness Skin General: no rashes or lesions noted Neuro General: patient alert, patient oriented x3 and patient confused (Slow speech.) Cranial Nerves: CN's II-XI intact bilaterally and nystagmus (Bilateral) Extrem Other: Normal range of motion right hip. She is ambulatory. Tenderness in the right mid/proximal femur. No palpable abnormalities. Course Orders Ordered: ED Orders 12/10/21 15:31 Urinalysis Screen (Dip Only) Stat Urine Drug Screen, Rapid Stat EKG-12 Lead Stat 12/10/21 15:32 CT head/brain wo con Stat Basic Metabolic Panel Stat Complete Blood Count AUTO DIFF Stat ETOH [Ethanol (ETOH)] Stat Troponin I Stat 12/10/21 15:39 XR hip w pel if done RT 2V Stat Sodium Chloride (Normal Saline 0.9%) 1,000 mls @ 150 mls/hr IV CONT MOHSEN Last Admin: 12/10/21 15:55 Dose: 150 mls/hr Documented by: ABA Discontinued Medications Nicotine (Nicotine 21 Mg Patch) 21 mg TOP NOW ONE Stop: 12/10/21 16:48 Last Admin: 12/10/21 17:00 Dose: 21 mg Documented by: ABA Vital Signs Vital signs: Vital Signs - 8 hr 12/10/21 15:15 12/10/21 15:30 12/10/21 15:32 Temperature 97.7 F Pulse Rate 98 H 102 H 93 H Respiratory Rate 16 15 Blood Pressure 123/66 136/78 Pulse Oximetry 96 96 12/10/21 15:56 12/10/21 16:00 12/10/21 16:01 Temperature Pulse Rate 103 H 100 H 96 H Respiratory Rate 19 20 Blood Pressure 135/69 123/81 Pulse Oximetry 98 97 97 MDM - Neuro Symptoms/Deficit Medical Records Medical records narrative: Patient has right femur pain, she is rate surgery with a prosthesis extending the right femur. X-ray shows no obvious abnormality. She is referred back to Orthopedics. Alcohol level is 271. She is much more alert at the time of discharge than when she arrived. She is advised to follow up with her PCM regarding her alcohol. Lab Data Result diagrams: 12/10/21 15:32 12/10/21 15:32 Labs: Lab Results 12/10/21 12/10/21 Range/Units 15:32 15:32 WBC 8.5 (4.5-11.0) X10^3/uL RBC 4.42 (4.0-5.2) X10^6/uL Hgb 14.9 (12.0-16.0) g/dL Hct 43.7 (36-46) % MCV 98.8 (80-100) fL MCH 33.8 (26-34) PG MCHC 34.2 (30-36) % RDW 13.5 (11.6-14.8) % Plt Count 232 (150-400) X10^3/uL Neut % (Auto) 54.9 (50-75) % Lymph % (Auto) 34.2 (25-40) % [place] % (Auto) 9.6 (3-14) % Eos % (Auto) 1.0 L (2-4) % Baso % (Auto) 0.3 (0-2) % Neut # (Auto) 4700 (3601-0488) /uL Lymph # (Auto) 2900 (5628-5049) /uL [place] # (Auto) 800 (0-900) /uL Eos # (Auto) 100 (0-450) /uL Baso # (Auto) 0 (0-100) /uL Sodium 138 (137-145) mmol/L Potassium 5.4 H (3.4-5.1) mmol/L Chloride 101 (98-107) mmol/L Carbon Dioxide 25 (22-32) mmol/L BUN 11 (7-17) mg/dL Creatinine 0.79 (0.52-1.04) mg/dL Estimated GFR > 60 (>60) mL/min BUN/Creatinine Ratio 13.9 (6-22) Glucose 174 H (80-110) mg/dL Calcium 8.7 (8.4-10.2) mg/dL Troponin I < 0.012 (0.01-0.034) ng/mL Ethyl Alcohol 271 H ( - 10) mg/dL Imaging Data Right hip x-ray:: Radiologist's Impression: PROCEDURE:? XR HIP W PEL IF DONE RT 2V ? INDICATIONS:? Severe right hip pain.? Prior hip surgery. ? TECHNIQUE:? AP pelvis with lateral view(s) of the right hip(s).? ? COMPARISON:? [facility], [place], XR HIP W PEL IF DONE RT 2V, 05/27/2020, 17:39. ? FINDINGS:? ? Bones:? No fractures or dislocations.? Pelvic ring appears intact.? No suspicious bony lesions.? Stable appearance of right femoral fixation.? Hardware is intact without evidence of hardware fracture or periprosthetic lucency to suggest loosening.? Moderate left hip arthritic change. ? Soft tissues:? The visualized bowel gas pattern is normal.? No suspicious soft tissue calcifications.? ? ? IMPRESSION:? Right femoral fixation is stable. CT scan - head: Radiologist's Impression: No acute findings Discharge Plan Departure Patient Disposition: Home Clinical Impression: Acute pain of right thigh, Alcohol intoxication Instructions: Alcohol Use Disorder, DI for Hip Pain Activity Restrictions/Additional Instructions: Tylenol or Advil as needed for right hip pain. Contact [facility] arrange follow-up. I will give you contact information for Dr. Stevens, she has the current on-call doctor. I would suggest you follow up your PCM about your alcohol use. You told me your last use of alcohol was last night, yet your level in the ER today was notably high. Return here as needed. Prescriptions: No Action (DME) Ensure See Rx Instructions .Route .MEDSUPPLY Qty: 1 0RF Rx Instructions: As directed (DME) parking permit See Rx Instructions .Route .MEDSUPPLY Qty: 1 0RF Rx Instructions: As directed trazodone 50 mg tablet 25 mg PO BEDTIME PRN (Reason: insomnia) Qty: 30 3RF risedronate [Actonel] 35 mg tablet 35 mg PO QWEEK Qty: 12 3RF Rx Instructions: administer at least 30 minutes before the first food or drink of the day other than water. COVID-19 vacc,mRNA(Moderna)-PF 100 mcg/0.5 mL suspension 0.25 ml IM ONCE Qty: 0.25 0RF Referrals: Verito Braun ARNP [Primary Care Provider] - Angely Stevens MD [Physician] -
[2021-12-10 15:39] LABS: Add Manual Diff / Slide Review NO; Basophils Absolute Auto 0 /uL (0-100); Basophils Percent Auto 0.3 % (0-2); Eosinophils Absolute Auto 100 /uL (0-450); Hematocrit 43.7 % (36-46); Hemoglobin 14.9 g/dL (12.0-16.0); Lymphocytes Absolute Auto 2900 /uL (1100-4500); Lymphocytes Percent Auto 34.2 % (25-40); Mean Corpuscular HGB Conc 34.2 % (30-36); Mean Corpuscular Hemoglobin 33.8 PG (26-34); Mean Corpuscular Volume 98.8 fL (80-100); Monocytes Absolute Auto 800 /uL (0-900); Monocytes Percent Auto 9.6 % (3-14); Neutrophils Absolute Auto 4700 /uL (1500-7000); Neutrophils Percent Auto 54.9 % (50-75); Platelet Count 232 X10^3/uL (150-400); Red Blood Cell Count 4.42 X10^6/uL (4.0-5.2); Red Cell Distribution Width 13.5 % (11.6-14.8); White Blood Cell Count 8.5 X10^3/uL (4.5-11.0)
--- NOTE | 2021-12-10 15:39 | DI.RAD.S_ITS ---
PROCEDURE: XR HIP W PEL IF DONE RT 2V INDICATIONS: Severe right hip pain. Prior hip surgery. TECHNIQUE: AP pelvis with lateral view(s) of the right hip(s). COMPARISON: [facility], , XR HIP W PEL IF DONE RT 2V, 05/27/2020, 17:39. FINDINGS: Bones: No fractures or dislocations. Pelvic ring appears intact. No suspicious bony lesions. Stable appearance of right femoral fixation. Hardware is intact without evidence of hardware fracture or periprosthetic lucency to suggest loosening. Moderate left hip arthritic change. Soft tissues: The visualized bowel gas pattern is normal. No suspicious soft tissue calcifications. IMPRESSION: Right femoral fixation is stable. Dictated by: Pauline Rodriguez M.D. on 12/10/2021 at 15:56 Approved by: Pauline Rodriguez M.D. on 12/10/2021 at 15:57
[2021-12-10 15:52] LABS: BUN Creatinine Ratio 13.9 (6-22); Blood Urea Nitrogen 11 mg/dL (7-17); Calcium 8.7 mg/dL (8.4-10.2); Carbon Dioxide 25 mmol/L (22-32); Chloride 101 mmol/L (98-107); Estimated Glomerular Filt Rate > 60 mL/min (>60); Ethanol (ETOH) 271 mg/dL; Glucose 174 mg/dL (80-110); HEMOLYSIS < 15 (0-50); Sodium 138 mmol/L (137-145)
[2021-12-10 15:53] LABS: Potassium 5.4 mmol/L (3.4-5.1)
[2021-12-10] MEDS: SODIUM CHLORIDE 0.9% 1,000 ML 150 ML IV (15:55)
[2021-12-10 15:56] VITALS: BP 135/69; PULSE 103; RESP 19; O2SAT 98
[2021-12-10 16:00] VITALS: PULSE 100; O2SAT 97
[2021-12-10 16:01] VITALS: BP 123/81; PULSE 96; RESP 20; O2SAT 97
[2021-12-10 16:05] LABS: Troponin I < 0.012 ng/mL (0.01-0.034)
[2021-12-10] MEDS: NICOTINE 21 MG PATCH TOP (17:00)
[2021-12-10] MEDS: KETOROLAC 30 MG/ML VIAL 15 MG IV (18:04)
== END 2021-12-10 18:30 | disposition home or self-care (01) ==
PROVIDERS: Emergency Provider Emergency Medicine; PCP Registered Nurse
DX: M25.551 Pain in right hip (principal); F10.129 Alcohol abuse with intoxication, unspecified; Y90.8 Blood alcohol level of 240 mg/100 ml or more
CPT/HCPCS: 36415; 70450; 73502; 80048; 80320; 84484; 85025; 93005; 96361; 96374; 99284; J1885

== ENCOUNTER → 2022-02-17 14:01 | Outpatient (CLI) | payer OTHER, SELFPAY ==
[2020-05-27 19:48] VITALS: BMI 14.8
[2022-02-19 16:18] LABS: Fecal Immunochemical Test Negative (Negative)
== END ==
PROVIDERS: PCP Family Medicine; Referring Provider Family Medicine; Visit Provider Family Medicine
DX: Z12.11 Encounter for screening for malignant neoplasm of colon (principal)
CPT/HCPCS: 82274

== ENCOUNTER 2022-07-22 19:35 | Emergency (ER) | payer OTHER, SELFPAY ==
[2020-05-27 19:48] VITALS: BMI 14.8
[2022-07-22 19:46] VITALS: BP 165/75; PULSE 75; RESP 24; TEMP 36.2; O2SAT 98; BMI 17.0
[2022-07-22] MEDS: ONDANSETRON 4 MG/2 ML INJ IV (19:55)
[2022-07-22] MEDS: LORazepam 2 MG/ML INJ 0.5 MG IV (20:11)
[2022-07-22 20:12] LABS: Add Manual Diff / Slide Review NO; Basophils Absolute Auto 0 /uL (0-100); Basophils Percent Auto 0.5 % (0-2); Eosinophils Absolute Auto 100 /uL (0-450); Hematocrit 45.2 % (36-46); Hemoglobin 15.1 g/dL (12.0-16.0); Lymphocytes Absolute Auto 3500 /uL (1100-4500); Lymphocytes Percent Auto 37.9 % (25-40); Mean Corpuscular HGB Conc 33.5 % (30-36); Mean Corpuscular Volume 107.6 fL (80-100); Monocytes Absolute Auto 400 /uL (0-900); Monocytes Percent Auto 4.4 % (3-14); Neutrophils Absolute Auto 5100 /uL (1500-7000); Neutrophils Percent Auto 56.2 % (50-75); Platelet Count 263 X10^3/uL (150-400); Red Blood Cell Count 4.19 X10^6/uL (4.0-5.2); Red Cell Distribution Width 15.3 % (11.6-14.8); White Blood Cell Count 9.1 X10^3/uL (4.5-11.0)
[2022-07-22 20:19] LABS: Alanine Aminotransferase 26 IU/L (<35); Albumin 4.5 g/dL (3.5-5.0); Albumin Globulin Ratio 1.5 (1.0-2.8); Alkaline Phosphatase 186 U/L (38-126); Aspartate Aminotransferase 70 IU/L (14-36); BUN Creatinine Ratio 10.1 (6-22); Bilirubin Total 0.5 mg/dL (0.2-1.3); Blood Urea Nitrogen 7 mg/dL (7-17); Calcium 8.7 mg/dL (8.4-10.2); Carbon Dioxide 20 mmol/L (22-32); Chloride 105 mmol/L (98-107); Estimated Glomerular Filt Rate > 60 mL/min (>60); Globulin 3.1 g/dL (1.7-4.1); Glucose 92 mg/dL (80-110); HEMOLYSIS 16 (0-50); Lipase 10 U/L (23-300); Potassium 4.9 mmol/L (3.4-5.1); Sodium 141 mmol/L (137-145); Total Protein 7.6 g/dL (6.3-8.2)
[2022-07-22 20:30] VITALS: BP 150/72; PULSE 72; RESP 20; O2SAT 99
--- NOTE | 2022-07-22 21:09 | PC.NURSE ---
2030: Pt's anxiety has subsided and walks to bathroom with steady gait. Pt asks to be seen by the Md and this RN informs pt that the MD is busy with another patient and will see her when they are available. With this answer the pt states that she would like to go home instead of wait for the MD. The patient neighbor then proceeds to convince pt to stay. Then the neighbor leaves to get her self some dinner. 2044: Pt is found by this RN looking at pt charts in the hallway. This RN informs pt that she can not being doing this due to patient privacy. This Rn explains to pt why she must stay in her haas bed and instructs pt to remain in alma bed. Five minutes later this Rn finds pt down the hallway talking to other patient's family members. This RN assessed that pt is safe to wait on the waiting room to be seen by MD and has informed pt that her behavior is unacceptable and that she is to go into the waiting room due to her reapted breach of patient privacy. Pt is A&Ox4 walks with a steady gait.
--- NOTE | 2022-07-22 21:17 | PC.NURSE ---
2100: Pt wants to leave and requests to have her IV removed. This RN removed pt IV. 2109: Pt's neighbor has returned to take pt home but has convinced pt to wait in the waiting room to be seen by . Pt is agreeable to this plan and is sitting calmly in a avril with her neighbor.
--- NOTE | 2022-07-22 23:46 | ED_ITS ---
HPI - Nausea/Vomiting/Diarrhea General Chief complaint: Nausea/Vomiting/Diarrhea Stated complaint: Can't eat/drink, Stomach pain Time Seen by Provider: 07/22/22 20:02 Source: patient and other Mode of arrival: Wheelchair Limitations: no limitations History of Present Illness HPI Narrative: Patient is a 71-year-old female who is here for evaluation of stomach pain, nausea vomiting and diarrhea that have been going on for the past couple days. It started fairly suddenly after eating some shrimp which she states was probably ?bad? she is had persistent symptoms since then. No fevers. Has not tried anything for her symptoms prior to arrival. States the abdominal pain does come on suddenly and then somewhat eases after either having a bowel movement or vomiting. She does have a history of anxiety and her current presentation has caused her anxiety to become worse. Related Data Previous Rx's Medication Instructions Recorded ondansetron 4 mg disintegrating 4 mg PO Q6H PRN nausea and 07/23/22 tablet vomiting #20 tabs Allergies Allergy/AdvReac Type Severity Reaction Status Date / Time No Known Drug Allergies Allergy Verified 08/17/21 12:45 Review of Systems Constitutional Constitutional: Reports system reviewed and no additional complaints, except as documented Cardiovascular Cardiovascular: Reports system reviewed and no additional complaints, except as documented Respiratory Respiratory: Reports system reviewed and no additional complaints, except as documented Gastrointestinal Gastrointestinal: Reports system reviewed and no additional complaints, except as documented Genitourinary Genitourinary: Reports system reviewed and no additional complaints, except as documented Hematologic/Lymphatic On Anticoagulants: No Patient History Medical History Chronic pain of right lower extremity Closed fracture of neck of right femur Current every day smoker Healthy adult Loose stools Pre-diabetes Unsteady gait Surgical History History of bilateral breast implants History of cholecystectomy History of hysterectomy Family History Father Congestive heart failure Mother No significant medical problems Brother Heart disease Diabetes mellitus Sister Cancer Social History household members: none lives independently: Yes Smoking Status: Current every day smoker alcohol intake: current Smoking Status: Current every day smoker tobacco type: cigarettes alcohol intake frequency: 3 or more drinks per day Alcohol type: wine Substance Use Type: does not use Exam Initial Vital Signs Initial Vital Signs: Vital Signs Temperature 97.2 F L 07/22/22 19:46 Pulse Rate 75 07/22/22 19:46 Respiratory Rate 24 07/22/22 19:46 Blood Pressure 165/75 H 07/22/22 19:46 Pulse Oximetry 98 07/22/22 19:46 Oxygen Delivery Method 07/22/22 19:46 Const General: cooperative and comfortable HENMT Head: normal to inspection and normocephalic Resp Effort & Inspection: normal respiratory effort Auscultation: clear to auscultation bilaterally Cardio Rate: regular rate Rhythm: regular rhythm GI Inspection: normal to inspection and non-distended Palpation: soft, No firm, No guarding and tender (Right-sided abdomen) Skin General: no rashes or lesions noted Neuro General: patient alert, patient awake, patient oriented x3 and moves all extremities Extrem General: capillary refill normal Psych Appearance: grossly normal and well kempt Course Orders Ordered: ED Orders 07/22/22 19:52 EKG-12 Lead Stat 07/22/22 19:56 Complete Blood Count AUTO DIFF Stat Comprehensive Metabolic Panel Stat Lipase Stat 07/22/22 23:47 CT abdomen pelvis w con Stat Discontinued Medications Sodium Chloride (Normal Saline 0.9%) 1,000 mls @ 1,000 mls/hr IV BOLUS ONE Stop: 07/23/22 00:45 Last Infusion: 07/23/22 01:18 Dose: 0 mls/hr Documented By: Admin: 07/23/22 00:15 Dose: 1,000 mls/hr Documented By: HUNTER Lorazepam (Lorazepam 2 Mg/Ml Inj) 0.5 mg IV NOW ONE Stop: 07/22/22 20:03 Last Admin: 07/22/22 20:11 Dose: 0.5 mg Documented By: DAVID Ondansetron HCl (Ondansetron 4 Mg Odt) 4 mg PO NOW PRN PRN Reason: Nausea And Vomiting Ondansetron HCl (Ondansetron 4 Mg/2 Ml Inj) 4 mg IV NOW PRN PRN Reason: Nausea And Vomiting Last Admin: 07/22/22 19:55 Dose: 4 mg Documented By: DAVID Ondansetron HCl (Ondansetron 4 Mg Odt Prepack) 1 bottle MISC SEEINSTR ONE Stop: 07/23/22 01:41 Ondansetron HCl (Ondansetron 4 Mg Odt Prepack) 1 bottle MISC SEEINSTR ONE Stop: 07/23/22 01:49 Last Admin: 07/23/22 01:52 Dose: Not Given Documented By: AP Vital Signs Vital signs: Vital Signs - 8 hr 07/22/22 19:46 07/22/22 20:30 07/23/22 01:42 Temperature 97.2 F L 98 F Pulse Rate 75 72 78 Respiratory Rate 24 20 18 Blood Pressure 165/75 H 150/72 H 146/65 H Pulse Oximetry 98 99 98 Oxygen Delivery Method Room Air Room Air Room Air MDM - Nausea/Vomiting/Diarrhea Lab Data Attestation: I reviewed the patient's lab results. Result diagrams: 07/22/22 19:56 07/22/22 19:56 Labs: Lab Results 07/22/22 07/22/22 Range/Units 19:56 19:56 WBC 9.1 (4.5-11.0) X10^3/uL RBC 4.19 (4.0-5.2) X10^6/uL Hgb 15.1 (12.0-16.0) g/dL Hct 45.2 (36-46) % MCV 107.6 H (80-100) fL MCH 36.0 H (26-34) PG MCHC 33.5 (30-36) % RDW 15.3 H (11.6-14.8) % Plt Count 263 (150-400) X10^3/uL Neut % (Auto) 56.2 (50-75) % Lymph % (Auto) 37.9 (25-40) % [place] % (Auto) 4.4 (3-14) % Eos % (Auto) 1.0 L (2-4) % Baso % (Auto) 0.5 (0-2) % Neut # (Auto) 5100 (0683-4072) /uL Lymph # (Auto) 3500 (9598-0369) /uL [place] # (Auto) 400 (0-900) /uL Eos # (Auto) 100 (0-450) /uL Baso # (Auto) 0 (0-100) /uL Sodium 141 (137-145) mmol/L Potassium 4.9 (3.4-5.1) mmol/L Chloride 105 (98-107) mmol/L Carbon Dioxide 20 L (22-32) mmol/L BUN 7 (7-17) mg/dL Creatinine 0.69 (0.52-1.04) mg/dL Estimated GFR > 60 (>60) mL/min BUN/Creatinine Ratio 10.1 (6-22) Glucose 92 (80-110) mg/dL Calcium 8.7 (8.4-10.2) mg/dL Total Bilirubin 0.5 (0.2-1.3) mg/dL AST 70 H (14-36) IU/L ALT 26 (<35) IU/L Alkaline Phosphatase 186 H (38-126) U/L Total Protein 7.6 (6.3-8.2) g/dL Albumin 4.5 (3.5-5.0) g/dL Globulin 3.1 (1.7-4.1) g/dL Albumin/Globulin Ratio 1.5 (1.0-2.8) Lipase 10 L (23-300) U/L Imaging Data CT scan - abdomen/pelvis: Radiologist's Impression: [place] [address] CT Scan Report Signed Patient: Hailey Mora MR#: [id number] : 1950 Acct:[id number] Age/Sex: 71 / F Date of Service: 07/22/22 Loc: ED Accession Number: [id number] ?? Procedure: CT abdomen pelvis w con Ordering Provider: Prudencio Whitfield D.O. PROCEDURE:? CT ABDOMEN PELVIS W CON ? INDICATIONS:? Right-sided abdominal pain ? TECHNIQUE:? After the administration of IV contrast, axial sections were acquired from the lung bases to the pubic symphysis.? Coronal and sagittal reformats were performed.? For radiation dose reduction, the following was used:? automated exposure control, adjustment of mA and/or kV according to patient size. ? COMPARISON:? None. ? FINDINGS:? Image quality:? There is streak artifact from patient's right femoral surgical hardware.? ? ? Lung bases:? Unremarkable.? ? Heart:? Heart is normal in size. ? ? ABDOMEN: Liver:? There is diffuse hypoattenuation of the liver consistent with fatty infiltration. Gallbladder:? Surgically absent. Biliary ducts:? No biliary ductal dilatation.? ? Pancreas:? Diffuse calcifications are demonstrated throughout the pancreas consistent sequelae of chronic pancreatitis.? There is mild pancreatic duct dilatation measuring up to 1.0 cm. Spleen:? Normal in size.? ? Adrenal Glands:? No adrenal nodules.? ? Kidneys and Ureters:? No hydronephrosis.? ? ? Stomach and Bowel:? Stomach and small bowel loops are normal in caliber and wall thickness.? The appendix is normal in appearance.? There is mild segmental bowel wall thickening within the sigmoid colon.? Peritoneum:? No abnormal intraperitoneal fluid.? No free air.? ? Ventral Wall: ? No hernia.? Abdominal Nodes:? No retroperitoneal or mesenteric adenopathy by size criteria.? Vessels:? Aorta and inferior vena cava are normal in size.? ? PELVIS: Pelvic Organs:? Unremarkable.? ? Bladder:? Unremarkable.? ? Pelvic Nodes: No enlarged lymph nodes.? Miscellaneous: No inguinal hernias are seen. ? ? ? Bones:? Visualized osseous structures demonstrate no suspicious focal lesions. ? IMPRESSION:? ? 1. Mild segmental wall thickening in the sigmoid colon suggestive of a mild colitis. ? 2.? No evidence of appendicitis. ? 3. Sequelae of chronic pancreatitis with including dilatation of the pancreatic duct.? ? ? Dictated by: Jan Chavez M.D. on 07/23/2022 at 1:28 ? ? Approved by: Jan Chavez M.D. on 07/23/2022 at 1:31? MDM Narrative Medical decision making narrative: Patient states she did feel better after the fluids and the Ativan and Zofran although she did have fairly significant right-sided lower abdominal tenderness on the exam. A CT scan was ordered which showed colitis but no acute surgical pathology. No indication for antibiotics. She is not had any recent antibiotics and has not had any recent travel. Will discharge patient home with a prescription for Zofran. She states she was feeling much better after the 2 L fluids. She was given return precautions. She expressed understanding and agreement. Discharge Plan Departure Patient Disposition: Home Clinical Impression: Nausea, vomiting, and diarrhea Instructions: Diarrhea, Nausea and Vomiting-Adult Activity Restrictions/Additional Instructions: Use the nausea medication as needed. Be sure to increase your fluid intake. Return to the emergency department for any new symptoms. Prescriptions: New ondansetron 4 mg tablet,disintegrating 4 mg PO Q6H PRN (Reason: nausea and vomiting) Qty: 20 0RF No Action COVID-19 vacc,mRNA(Moderna)-PF 100 mcg/0.5 mL suspension 0.25 ml IM ONCE Qty: 0.25 0RF Referrals: Yves Shafer DO [Primary Care Provider] - Stand Alone Forms: Patient Portal/API
--- NOTE | 2022-07-22 23:47 | DI.CT.S_ITS ---
PROCEDURE: CT ABDOMEN PELVIS W CON INDICATIONS: Right-sided abdominal pain TECHNIQUE: After the administration of IV contrast, axial sections were acquired from the lung bases to the pubic symphysis. Coronal and sagittal reformats were performed. For radiation dose reduction, the following was used: automated exposure control, adjustment of mA and/or kV according to patient size. COMPARISON: None. FINDINGS: Image quality: There is streak artifact from patient's right femoral surgical hardware. Lung bases: Unremarkable. Heart: Heart is normal in size. ABDOMEN: Liver: There is diffuse hypoattenuation of the liver consistent with fatty infiltration. Gallbladder: Surgically absent. Biliary ducts: No biliary ductal dilatation. Pancreas: Diffuse calcifications are demonstrated throughout the pancreas consistent sequelae of chronic pancreatitis. There is mild pancreatic duct dilatation measuring up to 1.0 cm. Spleen: Normal in size. Adrenal Glands: No adrenal nodules. Kidneys and Ureters: No hydronephrosis. Stomach and Bowel: Stomach and small bowel loops are normal in caliber and wall thickness. The appendix is normal in appearance. There is mild segmental bowel wall thickening within the sigmoid colon. Peritoneum: No abnormal intraperitoneal fluid. No free air. Ventral Wall: No hernia. Abdominal Nodes: No retroperitoneal or mesenteric adenopathy by size criteria. Vessels: Aorta and inferior vena cava are normal in size. PELVIS: Pelvic Organs: Unremarkable. Bladder: Unremarkable. Pelvic Nodes: No enlarged lymph nodes. Miscellaneous: No inguinal hernias are seen. Bones: Visualized osseous structures demonstrate no suspicious focal lesions. IMPRESSION: 1. Mild segmental wall thickening in the sigmoid colon suggestive of a mild colitis. 2. No evidence of appendicitis. 3. Sequelae of chronic pancreatitis with including dilatation of the pancreatic duct. Dictated by: Jan Chavez M.D. on 07/23/2022 at 1:28 Approved by: Jan Chavez M.D. on 07/23/2022 at 1:31
[2022-07-23] MEDS: SODIUM CHLORIDE 0.9% 1,000 ML 1000 ML IV (00:15)
[2022-07-23 01:42] VITALS: BP 146/65; PULSE 78; RESP 18; TEMP 36.6; O2SAT 98
== END 2022-07-23 02:00 | disposition home or self-care (01) ==
PROVIDERS: Emergency Provider Emergency Medicine; PCP Family Medicine
DX: R11.2 Nausea with vomiting, unspecified (principal); R19.7 Diarrhea, unspecified; R10.9 Unspecified abdominal pain
CPT/HCPCS: 36415; 74177; 80053; 83690; 85025; 96361; 96374; 96375; 99284; J2060; J2405; Q9967